=== PATIENT | female | born 1990 | race Caucasian/White ===

== ENCOUNTER 2020-06-22 14:38 | Emergency (ER) | payer SELFPAY ==
--- NOTE | 2020-06-22 14:51 | ED Physician Documentation ---
PD HPI FEMALE - Stated complaint Stated Complaint: ABD PX, FEMALE - Chief complaint Chief Complaint: UTI - History obtained from History obtained from: Patient - History of Present Illness Timing - onset: How many days ago (3-4) Timing - duration: Days Timing - details: Gradual onset, Waxing and waning Associated symptoms: Pelvic pain, Dysuria, Urinary frequency. No: Fever, Back pain, Vaginal discharge, Genital sore/lesion Contributing factors: No: Exposed to STD Similar symptoms before: Diagnosis (UTIs several times in past few months, improved on Keflex abx but then back again within a month.) Recently seen: Clinic (seen video with PCP in last month and Dx UTI. Walk in the month prior with UTI. Had UTI dx with labs and CT [place], with normal CT per patient.) Review of Systems Constitutional: denies: Fever, Chills Nose: denies: Rhinorrhea / runny nose, Congestion Throat: denies: Sore throat Respiratory: denies: Cough GI: reports: Abdominal Pain, Nausea. denies: Vomiting, Diarrhea : reports: Dysuria, Frequency, Hematuria, Irregular menses. denies: Discharge Skin: denies: Rash, Lesions PD PAST MEDICAL HISTORY - Past Medical History Cardiovascular: None Respiratory: None Endocrine/Autoimmune: None BOOKKEEPING CLERK: None - Present Medications Home Medications: Ambulatory Orders Medication Instructions Recorded Confirmed Ciprofloxacin [Cipro] 250 mg PO BID #14 tablet 06/22/20 - Allergies Allergies/Adverse Reactions: Allergies Allergy/AdvReac Type Severity Reaction Status Date / Time mushroom Allergy Anaphylaxis Verified 06/22/20 14:44 sulfamethoxazole Allergy Hives Verified 06/22/20 14:44 [From Bactrim] trimethoprim [From Bactrim] Allergy Hives Verified 06/22/20 14:44 - Family History Family history: reports: Other (bladder cancer) PD ED PE NORMAL - Vitals Vital signs reviewed: Yes - General General: Alert and oriented X 3, No acute distress (but somewhat anxious about having worse process due to recurrent UTIs. Specifically concerned about bladder CA since her mom had that. ), Well developed/nourished - Abdomen Abdomen: Normal bowel sounds, Soft, Non tender, Non distended - Female Female : Deferred - Rectal Rectal: Deferred - Back Back: No CVA TTP - Derm Derm: Normal color, Warm and dry - Neuro Neuro: Alert and oriented X 3, No motor deficit, Normal speech Results - Vitals Vitals: Vital Signs - 24 hr 06/22/20 06/22/20 06/22/20 14:44 15:23 16:58 Temperature 36.8 C 36.8 C Heart Rate 83 74 74 Respiratory 20 16 17 Rate Blood Pressure 128/79 137/87 H 137/94 H O2 Saturation 98 100 100 Oxygen O2 Source Room air - Labs Labs: Laboratory Tests 06/22/20 06/22/20 06/22/20 14:55 14:56 16:45 Urine Color YELLOW Urine Clarity HAZY Urine pH 8.0 H Ur Specific [place] 1.015 Urine Protein NEGATIVE Urine Glucose (UA) NEGATIVE Urine Ketones NEGATIVE Urine Occult Blood NEGATIVE Urine Nitrite NEGATIVE Urine Bilirubin NEGATIVE Urine Urobilinogen 0.2 (NORMAL) Ur Leukocyte Esterase SMALL H Urine RBC 0-5 Urine WBC 11-25 H Ur Squamous Epith Cells FEW Squamous Urine Bacteria Moderate H Ur Microscopic Review INDICATED Urine Culture Comments INDICATED Urine HCG, Qual NEGATIVE C. glabrata (PCR) C. krusei (PCR) Susan species DNA Chlam trachomat DNA PCR NEGATIVE N.gonorrhoeae DNA (PCR) NEGATIVE T. vaginalis (PCR) NEGATIVE Bact Vaginosis (PCR) 06/22/20 16:45 Urine Color Urine Clarity Urine pH Ur Specific [place] Urine Protein Urine Glucose (UA) Urine Ketones Urine Occult Blood Urine Nitrite Urine Bilirubin Urine Urobilinogen Ur Leukocyte Esterase Urine RBC Urine WBC Ur Squamous Epith Cells Urine Bacteria Ur Microscopic Review Urine Culture Comments Urine HCG, Qual C. glabrata (PCR) POSITIVE A C. krusei (PCR) NEGATIVE Susan species DNA NEGATIVE Chlam trachomat DNA PCR N.gonorrhoeae DNA (PCR) T. vaginalis (PCR) NEGATIVE Bact Vaginosis (PCR) POSITIVE A - Rads (name of study) pelvic US Radiology: Prelim report reviewed (PCOS, no large cyst, normal ovaries. No free fluid. ), See rad report PD MEDICAL DECISION MAKING - ED course Complexity details: considered differential (she was very concerned about cancer (uterine, bladder, etc) and so gave referral to Urology for further discussion. Recurrent UTI vs vaginitis is not unusual for her age, but could benefit from Urology consult since getting frequent symptoms. ), d/w patient ED course: Follow up after discharge - the vaginal PCR tests are resulted showing yeast and BV. Will contact her next AM and add abx Flagyl and Diflucan. Awaiting urine culture, so not sure yet whether to discontinue the Cipro. Departure - Departure Disposition: 01 Home, Self Care Clinical Impression: Dysuria, History of PCOS, Pelvic pain, Irregular menses UTI (urinary tract infection) Qualifiers: Urinary tract infection type: acute cystitis Hematuria presence: with hematuria Qualified Code(s): N30.01 - Acute cystitis with hematuria Condition: Stable Record reviewed to determine appropriate education?: Yes Instructions: ED UTI Cystitis Female Follow-Up: Dorothy Elizabeth MD [Provider Admit Priv/Credential] - Prescriptions: Ciprofloxacin [Cipro] 250 mg PO BID #14 tablet Comments: Your ultrasound showed expected multiple small cysts consistent with your PCOS. There are no large cysts. The ovaries appeared normal blood flow. No abnormalities of the uterus. No other abnormalities noted. Your urine does have some signs of infection to it so it may be another bladder infection. The vaginal swabs will result in a day or 2 to see if there is any sign of mitchell terial vaginitis as a potential cause for the recurring infections. We will call you if any positive results that need changing in medication. Meanwhile we will treat with Cipro twice daily for a week for the infection. This is chosen since you are allergic to Bactrim (sulfa) and had recently been treated with the cephalexin with the recurrent infection now. You can follow-up with urology with the concern you have of recurrent infections or any other bladder abnormality. Call for an appointment. The urologist referred is part of a small group that does do clinics here in [facility] and you can see any of the group. Discharge Date/Time: 06/22/20 16:59
[2020-06-22 15:03] LABS: BILIRUBIN,URINE NEGATIVE (NEGATIVE); GLUCOSE, URINE (UA) NEGATIVE (NEGATIVE); KETONES,URINE (UA) NEGATIVE (NEGATIVE); LEUKOCYTE ESTERASE, URINE SMALL (NEGATIVE); NITRITE,URINE NEGATIVE (NEGATIVE); OCCULT BLOOD,URINE NEGATIVE (NEGATIVE); PROTEIN,URINE NEGATIVE (NEGATIVE); UROBILINOGEN,URINE 0.2 (NORMAL) E.U./dL (NORMAL)
[2020-06-22 15:07] LABS: CLARITY,URINE HAZY (CLEAR)
[2020-06-22 15:08] LABS: HCG UR QUAL NEGATIVE
[2020-06-22 15:17] LABS: RBC,URINE 0-5 /HPF (0-5)
[2020-06-22 15:18] LABS: BACTERIA,URINE Moderate /HPF (None Seen); SQUAMOUS EPITHELIAL CELL,UR FEW Squamous (<= Few)
[2020-06-22] MEDS ORDERED: IBUPROFEN 600 MG TABLET PO STA (15:23)
--- NOTE | 2020-06-22 16:38 | Ultrasound Report ---
PROCEDURE: Pelvic w/Transvag+Doppler Ltd INDICATIONS: pelvic pain, midline and left TECHNIQUE: Real-time scanning was performed of the pelvic organs, with image documentation. Additional endovagi nal scanning was necessary due to incomplete visualization of the adnexal and endometrial structures by transabdominal scanning. COMPARISON: None. FINDINGS: Transabdominal scanning: Limited scanning through the kidneys shows no hydronephrosis. No pathologi c free abdominal or pelvic fluid. Endovaginal scanning: Uterus: Uterus is normal in size at 6.6 x 7.3 x 4.4 cm. The endometrium measures 5 mm in combined t hickness. There is a 9 mm intramural fibroid seen along the mid posterior uterus. Ovaries: The right ovary measures 3.1 x 2.3 x 3.3 cm. The left ovary measures 2.9 x 2.3 x 2.1 cm. Mo re than 12 follicles can be seen involving each ovary. Normal-appearing arterial waveforms are confir med to each ovary. No adnexal masses are seen on either side. IMPRESSION: No acute abnormality can be seen. Negative for ovarian torsion. More than 12 follicles can be seen involving each ovary, which is consistent with the known clinical history of polycystic ovarian syndrome. Note: Concordant preliminary findings given by the cost engineer upon the completion of the examination to Dr. Dodge at 4:20 PM on 06/22/2020. Reviewed by: Abhishek Romeo MD on 06/22/2020 3:37 PM [place] Approved by: Abhishek Romeo MD on 06/22/2020 3:37 PM [facility] Station ID: [id number]
[2020-06-22] MEDS ORDERED: CIPROFLOXACIN 250 MG TABLET PO STA (16:44)
[2020-06-22 16:59] VITALS: BP 137/94
[2020-06-22 18:54] LABS: CANDIDA GROUP DNA NEGATIVE (NEGATIVE); CANDIDA KRUSEI DNA NEGATIVE (NEGATIVE); TRICHOMONAS VAGINALIS DNA NEGATIVE (NEGATIVE)
[2020-06-22 19:28] LABS: TRICHOMONAS VAGINALIS DNA NEGATIVE (NEGATIVE)
== END 2020-06-22 16:59 | disposition home or self-care (01) ==
LOC: ED 14:38
DX: N30.01 Acute cystitis with hematuria (principal); Z87.42 Personal history of other diseases of the female genital tract
CPT/HCPCS: 76830; 76856; 81001; 81025; 87086; 87181; 87481; 87491; 87591; 87661; 87801; 93976; 99284; A9270; 81003

== ENCOUNTER 2020-10-26 17:18 | Emergency (ER) | payer SELFPAY ==
[2020-10-26 17:51] LABS: BASOPHILS # (AUTO) 0.1 10^3/uL (0.0-0.1); BASOPHILS % (AUTO) 0.6 %; EOSINOPHILS # (AUTO) 0.1 10^3/uL (0.0-0.7); EOSINOPHILS % (AUTO) 0.7 %; HCT - HEMATOCRIT 41.7 % (37.0-47.0); HGB - HEMOGLOBIN 13.7 g/dL (12.0-16.0); LYMPHOCYTES # (AUTO) 3.6 10^3/uL (1.5-3.5); LYMPHOCYTES % (AUTO) 28.6 %; MEAN CORPUSCULAR HEMOGLOBIN 28.4 pg (27.0-31.0); MEAN CORPUSCULAR HGB CONC 32.9 g/dL (32.0-36.0); MEAN CORPUSCULAR VOLUME 86.3 fL (81.0-99.0); MEAN PLATELET VOLUME 10.3 fL (7.9-10.8); MONOCYTES # (AUTO) 0.7 10^3/uL (0.0-1.0); MONOCYTES % (AUTO) 5.5 %; NEUTROPHILS % (AUTO) 64.4 %; PLT - PLATELET COUNT 275 10^3/uL (130-450); RED BLOOD COUNT 4.83 10^6/uL (4.20-5.40); RED CELL DISTRIBUTION WIDTH 12.3 % (12.0-15.0); WHITE BLOOD COUNT 12.4 x10^3/uL (4.8-10.8)
--- NOTE | 2020-10-26 18:00 | XRAY Report ---
PROCEDURE: Chest 1 View X-Ray INDICATIONS: Chest pain TECHNIQUE: One view of the chest was acquired. COMPARISON: None FINDINGS: Surgical changes and devices: None. Lungs and pleura: No pleural effusions or pneumothorax. Lungs are clear. Mediastinum: Mediastinal contours appear normal. Heart size is normal. Bones and chest wall: No suspicious bony lesions. Overlying soft tissues appear unremarkable. IMPRESSION: No acute process. Reviewed by: Tha Patterson MD on 10/26/2020 5:59 PM PDT Approved by: Tha Patterson MD on 10/26/2020 5:59 PM PDT Station ID: [id number]
[2020-10-26 18:06] LABS: ALBUMIN 4.5 g/dL (3.2-5.5); ALBUMIN/GLOBULIN RATIO 1.6 (1.0-2.2); BILIRUBIN,TOTAL 0.4 mg/dL (0.2-1.0); CALCIUM 9.3 mg/dL (8.5-10.3); CREATININE 0.7 mg/dL (0.4-1.0); POTASSIUM 3.8 mmol/L (3.5-5.0); TOTAL PROTEIN 7.3 g/dL (6.7-8.2)
[2020-10-26] MEDS ORDERED: DEXAMETHASONE 10 MG/ML VIAL IVP STA (18:51)
[2020-10-26] MEDS ORDERED: KETOROLAC 30 MG/ML VIAL IVP STA (18:51)
--- NOTE | 2020-10-26 20:17 | ED Physician Documentation ---
PD HPI CHEST PAIN - Stated complaint Stated Complaint: CP - Chief complaint Chief Complaint: Cardiac - History obtained from History obtained from: Patient - History of Present Illness Timing - onset: How many months ago (1) Timing - onset during: Light activity Timing - duration: Months (1) Timing - details: Gradual onset, Still present, Waxing and waning Quality: Sharp, Pain Location: Substernal, Right chest Radiation: Back Improved by: Rest Worsened by: Inspiration, Movement, Palpation, Position Associated symptoms: Shortness of air. No: Diaphoresis, Nausea, Vomiting, Feeling faint / dizzy, General Weakness, Palpitations, Cough Similar symptoms before: Has not had sx before Recently seen: Emergency Dept - Additional information Additional information: 30-year-old female with a history of bipolar disorder has developed pain in her chest and this is worse if she takes a deep breath or bends over. She has been evaluated for this chest pain at [facility] in [place] when she had a more severe episode and they had no specific findings. Patient presents to the emerge department this evening with pain in her chest present at rest worse with inspiration movement palpation and bending over. She does not otherwise feel ill. Review of Systems Constitutional: denies: Fever Eyes: denies: Decreased vision Ears: denies: Ear pain Nose: denies: Rhinorrhea / runny nose, Congestion Throat: denies: Sore throat Cardiac: reports: Chest pain / pressure. denies: Palpitations, Pedal edema, Calf pain Respiratory: reports: Dyspnea. 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 Psych: Depression, Anxiety, Obsessive compulsive disorder - Past Surgical History Past Surgical History: No - Present Medications Home Medications: Ambulatory Orders Medication Instructions Recorded Confirmed No Known Home Medications 10/26/20 10/26/20 - Allergies Allergies/Adverse Reactions: Allergies Allergy/AdvReac Type Severity Reaction Status Date / Time mushroom Allergy Anaphylaxis Verified 10/26/20 17:25 sulfamethoxazole Allergy Hives Verified 10/26/20 17:25 [From Bactrim] trimethoprim [From Bactrim] Allergy Hives Verified 10/26/20 17:25 - Social History Does the pt smoke?: No Smoking Status: Never smoker Does the pt drink ETOH?: Yes Does the pt have substance abuse?: No - Immunizations Immunizations are current?: Yes - POLST Patient has POLST: No PD ED PE NORMAL - Vitals Vital signs reviewed: Yes (Hypertensive) - General General: Alert and oriented X 3, No acute distress, Well developed/nourished - HEENT HEENT: Atraumatic, PERRL, EOMI - Neck Neck: Supple, no meningeal sign, No bony TTP - Cardiac Cardiac: RRR, No murmur - Respiratory Respiratory: No respiratory distress, Clear bilaterally, Other (There is tenderness to palpation of the chest wall especially along the right sternal costal angle. This reproduces the pain the patient is experiencing.) - Abdomen Abdomen: Soft, Non tender - Back Back: No CVA TTP, No spinal TTP - Derm Derm: Normal color, Warm and dry, No rash - Extremities Extremities: No deformity, No edema - Neuro Neuro: Alert and oriented X 3, product development technician 2-12 intact, No motor deficit, No sensory deficit, Normal speech Eye Opening: Spontaneous Motor: Obeys Commands Verbal: Oriented GCS Score: 15 - Psych Psych: Normal mood, Normal affect Results - Vitals Vitals: Vital Signs - 24 hr 10/26/20 10/26/20 10/26/20 17:25 19:29 20:24 Temperature 36.6 C 36.7 C 37.0 C Heart Rate 86 71 75 Respiratory 16 16 16 Rate Blood Pressure 138/81 H 114/78 126/65 O2 Saturation 99 98 100 Oxygen O2 Source Room air - EKG (time done) 1721 Rate: Rate (enter#) (80) Ischemia: Normal ST segments Compare to prior EKG: Old EKG unavailable Computer interpretation: Agree with computer - Labs Labs: Laboratory Tests 10/26/20 10/26/20 10/26/20 17:42 17:42 17:42 WBC 12.4 H RBC 4.83 Hgb 13.7 Hct 41.7 MCV 86.3 MCH 28.4 MCHC 32.9 RDW 12.3 Plt Count 275 MPV 10.3 Neut # (Auto) 8.0 H Lymph # (Auto) 3.6 H Hawkins # (Auto) 0.7 Eos # (Auto) 0.1 Baso # (Auto) 0.1 Absolute Nucleated RBC 0.00 Nucleated RBC % 0.0 D-Dimer Sodium 137 Potassium 3.8 Chloride 103 Carbon Dioxide 25 Anion Gap 9.0 BUN 11 Creatinine 0.7 Estimated GFR (MDRD) 99 Glucose 96 Calcium 9.3 Total Bilirubin 0.4 AST 15 ALT 18 Alkaline Phosphatase 51 Troponin I High Sens 2.7 Total Protein 7.3 Albumin 4.5 Globulin 2.8 Albumin/Globulin Ratio 1.6 Lipase 41 10/26/20 17:42 WBC RBC Hgb Hct MCV MCH MCHC RDW Plt Count MPV Neut # (Auto) Lymph # (Auto) Hawkins # (Auto) Eos # (Auto) Baso # (Auto) Absolute Nucleated RBC Nucleated RBC % D-Dimer 222.5 Sodium Potassium Chloride Carbon Dioxide Anion Gap BUN Creatinine Estimated GFR (MDRD) Glucose Calcium Total Bilirubin AST ALT Alkaline Phosphatase Troponin I High Sens Total Protein Albumin Globulin Albumin/Globulin Ratio Lipase - Rads (name of study) chest Radiology: Prelim report reviewed (Impression: No acute process.), EMP read indepedently, See rad report PD MEDICAL DECISION MAKING - ED course Complexity details: reviewed old records, reviewed results, re-evaluated patient, considered differential, d/w patient ED course: 30-year-old female who is developed chest pain and fatigue has chest wall tenderness that reproduces her symptoms and she gives a history that she has a bipolar disorder has recently gone through a divorce and periodically will have nighttime sobbing. She readily admits to this. I suspect this is the underlying culprit for her chest wall pain. She has a history of bipolar affect of disorder and she is not getting treatment for that currently as she is moved up to the area and does not have a primary care doctor. Here in the emergency department she is treated with 10 mg of dexamethasone and 30 mg of Toradol intravenously she has some improvement in her pain with that and I have discussed with her what the findings are and that I would like to see her get some treatment for her bipolar disorder as well. She is resistant to use of a narcotic pain relievers and I have recommended Tylenol or ibuprofen for pain. Departure - Departure Disposition: 01 Home, Self Care Clinical Impression: Acute costochondritis Condition: Stable Instructions: ED Chest Pain Costochondritis Follow-Up: [facility] [Provider Group] Discharge Date/Time: 10/26/20 20:30
[2020-10-26 20:25] VITALS: BP 126/65
== END 2020-10-26 20:30 | disposition home or self-care (01) ==
LOC: ED 17:18
DX: M94.0 Chondrocostal junction syndrome [Tietze] (principal); F31.9 Bipolar disorder, unspecified
CPT/HCPCS: 36415; 80053; 83690; 84484; 85025; 85379; 93005; 96374; 96375; 99284

== ENCOUNTER 2021-01-03 11:39 | Emergency (ER) | payer MEDICAID ==
[2021-01-03] MEDS ORDERED: SODIUM CHLORIDE 0.9% 1,000 ML IV STA (12:23)
[2021-01-03] MEDS ORDERED: ONDANSETRON 4 MG/2 ML VIAL IVP STA (12:23)
[2021-01-03] MEDS ORDERED: HYDROmorphone 1 MG/ML CARPUJECT IVP STA (12:23)
[2021-01-03 12:27] LABS: BASOPHILS # (AUTO) 0.1 10^3/uL (0.0-0.1); BASOPHILS % (AUTO) 0.4 %; EOSINOPHILS # (AUTO) 0.1 10^3/uL (0.0-0.7); EOSINOPHILS % (AUTO) 0.8 %; HCT - HEMATOCRIT 45.6 % (37.0-47.0); HGB - HEMOGLOBIN 14.9 g/dL (12.0-16.0); LYMPHOCYTES % (AUTO) 25.1 %; MEAN CORPUSCULAR HEMOGLOBIN 28.7 pg (27.0-31.0); MEAN CORPUSCULAR HGB CONC 32.7 g/dL (32.0-36.0); MEAN CORPUSCULAR VOLUME 87.9 fL (81.0-99.0); MEAN PLATELET VOLUME 9.8 fL (7.9-10.8); MONOCYTES # (AUTO) 0.5 10^3/uL (0.0-1.0); MONOCYTES % (AUTO) 4.5 %; NEUTROPHILS # (AUTO) 8.3 10^3/uL (1.5-6.6); NEUTROPHILS % (AUTO) 68.9 %; PLT - PLATELET COUNT 297 10^3/uL (130-450); RED BLOOD COUNT 5.19 10^6/uL (4.20-5.40); RED CELL DISTRIBUTION WIDTH 12.7 % (12.0-15.0)
--- NOTE | 2021-01-03 12:28 | ED Physician Documentation ---
History of Present Illness - Stated complaint Stated Complaint: ABD PX - Chief complaint Chief Complaint: Abd Pain - Additonal information Additional information: 30-year-old female presents emergency department for evaluation of lower abdomi nal pain. Reports it began last night as periumbilical and then migrated to the right lower quadrant. No fevers or vomiting. Pain has been intermittent. Sometimes throbbing sometimes sharp. Does not radiate to the back or left side. No pertinent past surgical history. She does have a history of PCOS. Was previously on Metformin but is no longer taking that due to a change in primary care providers as well as geographic location. This pain is not similar with previous PCOS flares. Patient is quite anxious worried that she could have appendicitis. Review of Systems Constitutional: denies: Fever, Chills Eyes: reports: Reviewed and negative Ears: reports: Reviewed and negative Nose: reports: Reviewed and negative Throat: reports: Reviewed and negative Cardiac: reports: Reviewed and negative GI: reports: Abdominal Pain. 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 Psych: Depression, Anxiety, Obsessive compulsive disorder - Past Surgical History Past Surgical History: No - Present Medications Home Medications: Ambulatory Orders Medication Instructions Recorded Confirmed No Known Home Medications 10/26/20 01/03/21 - Allergies Allergies/Adverse Reactions: Allergies Allergy/AdvReac Type Severity Reaction Status Date / Time mushroom Allergy Anaphylaxis Verified 10/26/20 17:25 sulfamethoxazole Allergy Hives Verified 10/26/20 17:25 [From Bactrim] trimethoprim [From Bactrim] Allergy Hives Verified 10/26/20 17:25 - Social History Does the pt smoke?: No Smoking Status: Never smoker Does the pt drink ETOH?: Yes Does the pt have substance abuse?: No - Immunizations Immunizations are current?: Yes - POLST Patient has POLST: No PD ED PE EXPANDED - General General: Alert, No acute distress - Cardiac Cardiac: Regular Rate, Radial strong equal, Pedal strong equal, Cap refill < 2 sec. No: Murmur Present - Respiratory Respiratory: Clear to ausultation brandi. No: Distress, Labored - Abdomen Abdomen: Normal Bowel sounds, Tender to palpation (Tenderness to the right lower quadrant without guarding or rebound. No flank or CVA tenderness elicited. Negative McBurney's.) - Derm Derm: Normal color, Warm and dry. No: Rash - Extremities Extremities: Normal. No: Deformity, Tenderness - Neuro Neuro: Alert and Oriented X 3, CNII-XII intact - GCS Eye Opening: Spontaneous Motor: Obeys Commands Verbal: Oriented Total: 15 Results - Vitals Vitals: Vital Signs - 24 hr 01/03/21 11:50 Temperature 35.9 C L Heart Rate 86 Respiratory 18 Rate Blood Pressure 144/91 H O2 Saturation 97 Oxygen O2 Source Room air - Labs Labs: Laboratory Tests 01/03/21 01/03/21 01/03/21 11:46 12:21 12:21 WBC 12.0 H RBC 5.19 Hgb 14.9 Hct 45.6 MCV 87.9 MCH 28.7 MCHC 32.7 RDW 12.7 Plt Count 297 MPV 9.8 Neut # (Auto) 8.3 H Lymph # (Auto) 3.0 [place] # (Auto) 0.5 Eos # (Auto) 0.1 Baso # (Auto) 0.1 Absolute Nucleated RBC 0.00 Nucleated RBC % 0.0 Sodium 138 Potassium 3.8 Chloride 101 Carbon Dioxide 26 Anion Gap 11.0 BUN 12 Creatinine 0.7 Estimated GFR (MDRD) 99 Glucose 92 Calcium 10.2 Total Bilirubin 0.4 AST 15 ALT 19 Alkaline Phosphatase 56 Total Protein 8.1 Albumin 4.8 Globulin 3.3 Albumin/Globulin Ratio 1.5 Lipase 44 Urine Color YELLOW Urine Clarity CLEAR Urine pH 7.0 Ur Specific [place] 1.010 Urine Protein NEGATIVE Urine Glucose (UA) NEGATIVE Urine Ketones NEGATIVE Urine Occult Blood NEGATIVE Urine Nitrite NEGATIVE Urine Bilirubin NEGATIVE Urine Urobilinogen 0.2 (NORMAL) Ur Leukocyte Esterase NEGATIVE Ur Microscopic Review NOT INDICATED Urine Culture Comments NOT INDICATED Urine HCG, Qual NEGATIVE - Rads (name of study) CT abd Radiology: Final report received (Appendix is normal. No free fluid or free air. No dilated loops of bowel.) PD MEDICAL DECISION MAKING - ED course Complexity details: reviewed results, re-evaluated patient, d/w patient, d/w family ED course: 30-year-old female presents emergency department for evaluation of 24 hours right lower quadrant abdominal pain that initially began in the periumbilical area. Screening labs show no acute abnormalities. She is not . We did do a CT scan that did not reveal findings of acute appendicitis. There is an incidental finding of a small fat-containing umbilical hernia. Here in the emergency department patient declined any pain medication and on reexam she is free of pain. CT imaging findings were discussed with the patient. Emergent return precautions were discussed. Departure - Departure Disposition: Home, Self Care Clinical Impression: RLQ abdominal pain Umbilical hernia Qualifiers: Obstruction and gangrene presence: without obstruction or gangrene Qualified Code(s): K42.9 - Umbilical hernia without obstruction or gangrene Condition: Stable Record reviewed to determine appropriate education?: Yes Instructions: ED Abdominal Pain Cause Unkn Fem Ch Comments: Lola you were seen here in the emergency department today for right lower quadrant abdominal pain. As we discussed your screening labs were all essentia lly normal. Your urine shows no signs of infection and you are not . We did do a CT scan to ensure that he did not have appendicitis and the appendix is normal. Your CAT scan was essentially normal for your age. You do have a very small fat-containing umbilical hernia. This is something that will just be watched over time and can be discussed with your primary care provider. If you ever develop suddenly severe umbilical pain, high fevers uncontrolled vomiting please return immediately to the ER for a second evaluation.
[2021-01-03 12:31] LABS: BILIRUBIN,URINE NEGATIVE (NEGATIVE); GLUCOSE, URINE (UA) NEGATIVE (NEGATIVE); KETONES,URINE (UA) NEGATIVE (NEGATIVE); LEUKOCYTE ESTERASE, URINE NEGATIVE (NEGATIVE); NITRITE,URINE NEGATIVE (NEGATIVE); OCCULT BLOOD,URINE NEGATIVE (NEGATIVE); PROTEIN,URINE NEGATIVE (NEGATIVE); UROBILINOGEN,URINE 0.2 (NORMAL) E.U./dL (NORMAL)
[2021-01-03 12:32] LABS: CLARITY,URINE CLEAR (CLEAR); HCG UR QUAL NEGATIVE
[2021-01-03 12:41] LABS: ALBUMIN 4.8 g/dL (3.2-5.5); ALBUMIN/GLOBULIN RATIO 1.5 (1.0-2.2); BILIRUBIN,TOTAL 0.4 mg/dL (0.2-1.0); CALCIUM 10.2 mg/dL (8.5-10.3); CREATININE 0.7 mg/dL (0.4-1.0); POTASSIUM 3.8 mmol/L (3.5-5.0); TOTAL PROTEIN 8.1 g/dL (6.7-8.2)
[2021-01-03] MEDS ORDERED: IOVERSOL 320 100 ML VIAL IVP ONE ×3 (12:56→16:50)
--- NOTE | 2021-01-03 13:41 | CT Report ---
PROCEDURE: Abdomen/Pelvis W INDICATIONS: RLQ abd CONTRAST: IV CONTRAST: Optiray 320 ml: 100 PO CONTRAST: *NO PO CONTRAST TECHNIQUE: After the administration of contrast, 5 mm thick sections acquired from the diaphragms to the sym physis. 5 mm thick coronal and sagittal reformats were acquired. For radiation dose reduction, the following was used: automated exposure control, adjustment of mA and/or kV according to patient size . COMPARISON: None. FINDINGS: Image quality: Excellent. ABDOMEN: Lung bases: Lung bases are clear. Heart size is normal. Solid organs: Liver and spleen are normal in size and enhancement. Gallbladder is normal Biliary s ystem is non dilated. Pancreas enhances normally. No adrenal nodules. Kidneys demonstrate normal s ize and enhancement, without hydronephrosis. Peritoneum and bowel: Bowel loops demonstrate normal wall thickness and caliber. No free fluid or a ir. The appendix is normal. Nodes and vessels: No retroperitoneal or mesenteric adenopathy by size criteria. Aorta and inferior vena cava are normal in size. Miscellaneous: Small fat-containing umbilical hernia. PELVIS: Genitourinary: Bladder wall thickness is normal. Miscellaneous: No inguinal hernias or adenopathy. Bones: No suspicious bony lesions. No vertebral body compression fractures. IMPRESSION: 1. Appendix is normal. 2. No free fluid or free air. 3. No dilated loops of bowel. Reviewed by: Mita Eldridge MD, PhD on 01/03/2021 1:40 PM PDT Approved by: Mita Eldridge MD, PhD on 01/03/2021 1:40 PM PDT Station ID: [id number]
[2021-01-03 14:10] VITALS: BP 138/75
== END 2021-01-03 14:10 | disposition home or self-care (01) ==
LOC: ED 11:39
DX: R10.31 Right lower quadrant pain (principal); K42.9 Umbilical hernia without obstruction or gangrene
CPT/HCPCS: 36415; 74177; 80053; 81003; 81025; 83690; 85025; 99284; Q9967; 81001; 87086

== ENCOUNTER 2021-01-22 10:34 | Outpatient (CLI) | payer MEDICAID ==
[2021-01-22 11:04] LABS: MUDS CUTOFF CONCENTRATIONS CUTOFF CONC BELOW:
[2021-01-22 11:05] LABS: BILIRUBIN,URINE NEGATIVE (NEGATIVE); GLUCOSE, URINE (UA) NEGATIVE (NEGATIVE); KETONES,URINE (UA) NEGATIVE (NEGATIVE); LEUKOCYTE ESTERASE, URINE NEGATIVE (NEGATIVE); NITRITE,URINE NEGATIVE (NEGATIVE); OCCULT BLOOD,URINE NEGATIVE (NEGATIVE); PROTEIN,URINE NEGATIVE (NEGATIVE); UROBILINOGEN,URINE 0.2 (NORMAL) E.U./dL (NORMAL)
[2021-01-22 11:06] LABS: BASOPHILS # (AUTO) 0.1 10^3/uL (0.0-0.1); BASOPHILS % (AUTO) 0.4 %; CLARITY,URINE CLEAR (CLEAR); EOSINOPHILS # (AUTO) 0.1 10^3/uL (0.0-0.7); EOSINOPHILS % (AUTO) 0.7 %; HCT - HEMATOCRIT 41.2 % (37.0-47.0); HGB - HEMOGLOBIN 13.4 g/dL (12.0-16.0); LYMPHOCYTES # (AUTO) 2.6 10^3/uL (1.5-3.5); LYMPHOCYTES % (AUTO) 21.2 %; MEAN CORPUSCULAR HEMOGLOBIN 28.9 pg (27.0-31.0); MEAN CORPUSCULAR HGB CONC 32.5 g/dL (32.0-36.0); MEAN PLATELET VOLUME 9.9 fL (7.9-10.8); MONOCYTES # (AUTO) 0.6 10^3/uL (0.0-1.0); MONOCYTES % (AUTO) 4.5 %; PLT - PLATELET COUNT 276 10^3/uL (130-450); RED BLOOD COUNT 4.63 10^6/uL (4.20-5.40); WHITE BLOOD COUNT 12.3 x10^3/uL (4.8-10.8)
[2021-01-22 11:14] LABS: AMPHETAMINE SCREEN,URINE NEGATIVE (NEGATIVE); BARBITURATE SCREEN,UR NEGATIVE (NEGATIVE); BENZODIAZEPINES SCREEN, URINE NEGATIVE (NEGATIVE); COCAINE SCREEN URINE NEGATIVE (NEGATIVE); METHADONE SCREEN, URINE NEGATIVE (NEGATIVE); METHAMPHETAMINES SCREEN, URINE NEGATIVE (NEGATIVE); OPIATE SCREEN, URINE NEGATIVE (NEGATIVE); OXYCODONE SCREEN, URINE NEGATIVE (NEGATIVE); PROPOXYPHENE SCREEN, URINE NEGATIVE (NEGATIVE); THC CANNABINOID SCREEN, URINE NEGATIVE (NEGATIVE); TRICYCLIC ANTIDEPRESSANT,URINE NEGATIVE (NEGATIVE)
[2021-01-22 11:20] LABS: BACTERIA,URINE Few /HPF (None Seen); RBC,URINE 0-5 /HPF (0-5); SQUAMOUS EPITHELIAL CELL,UR FEW Squamous (<= Few); WBC,URINE 0-3 /HPF (0-5)
[2021-01-23 12:13] LABS: HEPATITIS B SURFACE ANTIGEN NON-REACTIVE (NON-REACTIVE)
[2021-01-23 12:56] LABS: HEPATITIS C ANTIBODY NON-REACTIVE (NON-REACTIVE)
[2021-01-23 15:31] LABS: HIV AG/AB 4TH GEN NON-REACTIVE (NON-REACTIVE)
== END 2021-01-22 10:35 | disposition home or self-care (01) ==
LOC: LAB 10:34
PROVIDERS: ATTEND Nurse Practitioner Obstetrics & Gynecology
DX: Z32.01 Encounter for pregnancy test, result positive (principal)
CPT/HCPCS: 36415; 80306; 81001; 84702; 85025; 86592; 86762; 86787; 86803; 86850; 86900; 86901; 87086; 87340; 87389

== ENCOUNTER 2021-02-03 08:46 | Outpatient (CLI) | payer MEDICAID ==
--- NOTE | 2021-02-03 10:12 | Ultrasound Report ---
PROCEDURE: OB First Trimester w/TV INDICATIONS: POSITIVE TEST OUTSIDE/PRIOR DATING DATA: Last menstrual period (LMP): 12/11/2020. LMP-based estimated date of delivery (KATERINA): 09/17/2021. First dating scan (date and location): 02/03/2021. Estimated date of delivery (KATERINA) from first dating scan: 09/22/2021. The below data below was generated using the KATERINA of 09/22/2021 TECHNIQUE: Real-time scanning was performed of the fetus and maternal pelvic organs, with image docu mentation. Endovaginal scanning was also performed to better visualize the fetus and maternal ovarie s. COMPARISON: None FINDINGS: Embryo: There is a single intrauterine gestational sac containing pole. Mean sac diameter is 2 .3 cm corresponding with a 7 week 2 day gestation. [place]-rump length is 1.0 cm corresponding to 7 wee k 0 day gestation. Normal-appearing yolk sac identified. Heart rate: 138 bpm Measurement variability in dating: +/- 4 weeks by LMP, +/- 7 days by mean sac diameter (use before 6 weeks gestation if crown-rump length not able to be measured), +/- 5 days by crown-rump length (6-12 weeks gestation). Maternal organs: Right ovarian 1.6 cm corpus luteum cyst noted. There is a posterior myometrial fibro id measuring 1.1 cm. IMPRESSION: Single live intrauterine corresponds with a 7 week 0 day gestation. Right ovarian corpus luteum cyst and small uterine fibroid Reviewed by: Leonid Huggins MD on 02/03/2021 9:11 AM JANIE Approved by: Leonid Huggins MD on 02/03/2021 9:11 AM JANIE Station ID: [id number]
== END 2021-02-03 08:47 | disposition home or self-care (01) ==
LOC: DI 08:46
PROVIDERS: ATTEND Nurse Practitioner Obstetrics & Gynecology
DX: Z32.01 Encounter for pregnancy test, result positive (principal)

== ENCOUNTER 2021-10-01 14:02 | Outpatient (CLI) | payer MEDICAID | END 2021-10-01 14:03 | disposition critical access hospital (66) | LOC: EMS 14:02 | DX: O90.89 Other complications of the puerperium, not elsewhere classified (principal); R12 Heartburn | CPT/HCPCS: A0425; A0429; A0999 ==

== ENCOUNTER 2021-10-01 14:26 | Inpatient (IN) | payer MEDICAID ==
[2021-10-01] MEDS ORDERED: SODIUM CHLORIDE 0.9% 1,000 ML IV STA (14:41)
--- NOTE | 2021-10-01 14:44 | ED Physician Documentation ---
History of Present Illness - Stated complaint Stated Complaint: HIGH BP/1 WK POST - Chief complaint Chief Complaint: Neuro - History obtained from History obtained from: Patient - History of Present Illness Timing: Today Pain level max: 0 Pain level now: 0 - Additonal information Additional information: Patient is a 31-year-old female, 1 para 1 who presents the emergency department after a delivery at [place] in [place] 1 week ago. She states that she has been feeling tired and weak since that time. She states that she was lightheaded today at the imaging analyst's office with her infant, they checked her blood pressure and it was 160/100. They called 911 and the patient was brought here. Currently she states she just feels tired. No fevers. No chills. Blood pressure is decreased to 122/80 upon arrival to the emergency department. She did have a mild headache earlier, none now. Did not have any complications with the per the patient. 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 Psych: Depression, Anxiety, Obsessive compulsive disorder - Past Surgical History Past Surgical History: No - Present Medications Home Medications: Ambulatory Orders Medication Instructions Recorded Confirmed No Known Home Medications 10/26/20 01/03/21 - Allergies Allergies/Adverse Reactions: Allergies Allergy/AdvReac Type Severity Reaction Status Date / Time mushroom Allergy Anaphylaxis Verified 10/01/21 14:37 sulfamethoxazole Allergy Hives Verified 10/01/21 14:37 [From Bactrim] trimethoprim [From Bactrim] Allergy Hives Verified 10/01/21 14:37 - Social History Does the pt smoke?: No Smoking Status: Never smoker Does the pt drink ETOH?: Yes Does the pt have substance abuse?: No - Immunizations Immunizations are current?: Yes - POLST Patient has POLST: No PD ED PE NORMAL - Vitals Vital signs reviewed: Yes - General General: Alert and oriented X 3, No acute distress - HEENT HEENT: PERRL, Moist mucous membranes - Neck Neck: Supple, no meningeal sign - Cardiac Cardiac: RRR, No murmur, Strong equal pulses - Respiratory Respiratory: No respiratory distress, Clear bilaterally - Abdomen Abdomen: Soft, Non tender, Non distended - Derm Derm: Warm and dry - Extremities Extremities: No edema, No calf tenderness / cord - Neuro Neuro: Alert and oriented X 3, radiocommunications technician 2-12 intact, No motor deficit, No sensory deficit - Psych Psych: Normal mood, Normal affect Results - Vitals Vitals: Vital Signs - 24 hr 10/01/21 10/01/21 14:32 17:07 Temperature 36.7 C Heart Rate 79 73 Respiratory 16 16 Rate Blood Pressure 122/80 133/74 H O2 Saturation 97 98 Oxygen O2 Source Room air - Labs Labs: Laboratory Tests 10/01/21 10/01/21 10/01/21 14:55 14:55 15:04 WBC 11.2 H RBC 3.68 L Hgb 10.9 L Hct 33.0 L MCV 89.7 MCH 29.6 MCHC 33.0 RDW 13.4 Plt Count 263 MPV 9.9 Neut # (Auto) 8.5 H Lymph # (Auto) 2.0 [place] # (Auto) 0.4 Eos # (Auto) 0.3 Baso # (Auto) 0.0 Absolute Nucleated RBC 0.00 Nucleated RBC % 0.0 Sodium 137 Potassium 3.8 Chloride 103 Carbon Dioxide 24 Anion Gap 10.0 BUN 12 Creatinine 0.5 Estimated GFR (MDRD) 145 Glucose 90 Calcium 9.2 Phosphorus 3.6 Magnesium 1.8 Total Bilirubin 0.4 AST 25 ALT 38 Alkaline Phosphatase 64 Total Protein 6.2 L Albumin 2.8 L Globulin 3.4 Albumin/Globulin Ratio 0.8 L Lipase 30 Urine Color YELLOW Urine Clarity HAZY Urine pH 7.5 Ur Specific Reading 1.015 Urine Protein NEGATIVE Urine Glucose (UA) NEGATIVE Urine Ketones NEGATIVE Urine Occult Blood LARGE H Urine Nitrite NEGATIVE Urine Bilirubin NEGATIVE Urine Urobilinogen 0.2 (NORMAL) Ur Leukocyte Esterase NEGATIVE Urine RBC TNTC H Urine WBC 0-3 Ur Squamous Epith Cells FEW Squamous Urine Bacteria Rare Ur Microscopic Review INDICATED Urine Culture Comments NOT INDICATED Urine Creatinine Ur Total Protein Timed Protein/Creatinin Ratio 10/01/21 15:04 WBC RBC Hgb Hct MCV MCH MCHC RDW Plt Count MPV Neut # (Auto) Lymph # (Auto) [place] # (Auto) Eos # (Auto) Baso # (Auto) Absolute Nucleated RBC Nucleated RBC % Sodium Potassium Chloride Carbon Dioxide Anion Gap BUN Creatinine Estimated GFR (MDRD) Glucose Calcium Phosphorus Magnesium Total Bilirubin AST ALT Alkaline Phosphatase Total Protein Albumin Globulin Albumin/Globulin Ratio Lipase Urine Color Urine Clarity Urine pH Ur Specific Reading Urine Protein Urine Glucose (UA) Urine Ketones Urine Occult Blood Urine Nitrite Urine Bilirubin Urine Urobilinogen Ur Leukocyte Esterase Urine RBC Urine WBC Ur Squamous Epith Cells Urine Bacteria Ur Microscopic Review Urine Culture Comments Urine Creatinine 25.6 Ur Total Protein Timed 15 Protein/Creatinin Ratio 0.6 H PD MEDICAL DECISION MAKING - ED course Complexity details: reviewed results, re-evaluated patient, considered differential, d/w patient, d/w clinical services consultant ED course: 31-year-old female with hypertension and proteinuria. Possible preeclampsia? Headache resolved in the emergency department. Patient is 1 week . She is still lightheaded with standing. No chest pain. No shortness of breath. No evidence of pulmonary embolus. Discussed the case with OB, Dr. Rader came and evaluated the patient and will admit the patient for further care. This document was made in part using voice recognition software. While efforts are made to proofread this document, sound alike and grammatical errors may occur. Departure - Departure Disposition: ED Place in Observation Clinical Impression: Hypertension, condition or complication Condition: Stable Discharge Date/Time: 10/01/21 19:01
[2021-10-01 15:00] LABS: BASOPHILS % (AUTO) 0.3 %; EOSINOPHILS # (AUTO) 0.3 10^3/uL (0.0-0.7); EOSINOPHILS % (AUTO) 2.4 %; HGB - HEMOGLOBIN 10.9 g/dL (12.0-16.0); LYMPHOCYTES % (AUTO) 17.7 %; MEAN CORPUSCULAR HEMOGLOBIN 29.6 pg (27.0-31.0); MEAN CORPUSCULAR VOLUME 89.7 fL (81.0-99.0); MEAN PLATELET VOLUME 9.9 fL (7.9-10.8); MONOCYTES # (AUTO) 0.4 10^3/uL (0.0-1.0); MONOCYTES % (AUTO) 3.6 %; NEUTROPHILS # (AUTO) 8.5 10^3/uL (1.5-6.6); NEUTROPHILS % (AUTO) 75.6 %; PLT - PLATELET COUNT 263 10^3/uL (130-450); RED BLOOD COUNT 3.68 10^6/uL (4.20-5.40); RED CELL DISTRIBUTION WIDTH 13.4 % (12.0-15.0); WHITE BLOOD COUNT 11.2 x10^3/uL (4.8-10.8)
[2021-10-01 15:17] LABS: ALBUMIN 2.8 g/dL (3.2-5.5); ALBUMIN/GLOBULIN RATIO 0.8 (1.0-2.2); BILIRUBIN,TOTAL 0.4 mg/dL (0.2-1.0); CALCIUM 9.2 mg/dL (8.5-10.3); CREATININE 0.5 mg/dL (0.4-1.0); MAGNESIUM 1.8 mg/dL (1.7-2.8); PHOSPHORUS 3.6 mg/dL (2.5-4.6); POTASSIUM 3.8 mmol/L (3.5-5.0); TOTAL PROTEIN 6.2 g/dL (6.7-8.2)
[2021-10-01 16:33] LABS: BILIRUBIN,URINE NEGATIVE (NEGATIVE); GLUCOSE, URINE (UA) NEGATIVE (NEGATIVE); KETONES,URINE (UA) NEGATIVE (NEGATIVE); LEUKOCYTE ESTERASE, URINE NEGATIVE (NEGATIVE); NITRITE,URINE NEGATIVE (NEGATIVE); OCCULT BLOOD,URINE LARGE (NEGATIVE); PH,URINE 7.5 PH (5.0-7.5); PROTEIN,URINE NEGATIVE (NEGATIVE); UROBILINOGEN,URINE 0.2 (NORMAL) E.U./dL (NORMAL)
[2021-10-01 16:44] LABS: CLARITY,URINE HAZY (CLEAR)
[2021-10-01 16:51] LABS: BACTERIA,URINE Rare /HPF (None Seen); RBC,URINE TNTC /HPF (0-5); SQUAMOUS EPITHELIAL CELL,UR FEW Squamous (<= Few); WBC,URINE 0-3 /HPF (0-5)
[2021-10-01 17:05] LABS: CREATININE,URINE 25.6 mg/dL; PROTEIN/CREATININE RATIO,URINE 0.6 (<=0.2)
--- NOTE | 2021-10-01 17:11 | CONSULTATION NOTE ---
Referring Provider Name of Referring Provider:: Ahsan Consult Date: 10/01/21 Chief Complaint - Chief Complaint Chief Complaint: Elevated blood pressure History of Present Illness - Admitted From Admitted From:: Emergency department - History Obtained From History obtained from: Patient - History of Present Illness HPI Comment/Other: Patient presents to the emergency department after transport from EMS. She reports she was at her baby's checkup when she began to feel faint. The nurse checked her blood pressure and her blood pressure was reportedly 160s over 90s. She does report a similar episode yesterday and elevated blood pressure for which she went to [facility] for evaluation. She reports she was screened for preeclampsia as well as for a DVT. She was subsequently discharged. Today she reports generalized fatigue and intermittent headaches. She did also note scotomas. The patient reports that her symptoms were exacerbated by her pain medications which she took just prior to her child's clinic visit. Her was complicated by gestational hypertension. She reports her blood pressures became elevated during labor. She had a primary section reportedly for intolerance to labor. 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: reports: Other (PCOS) Psych: reports: Depression, Anxiety, Obsessive compulsive disorder MRSA Hx?: No - POLST Patient has POLST: No Meds/Allgy - Home Medications Home Medications: Ambulatory Orders Medication Instructions Recorded Confirmed No Known Home Medications 10/26/20 01/03/21 - Allergies Allergies/Adverse Reactions: Allergies Allergy/AdvReac Type Severity Reaction Status Date / Time mushroom Allergy Anaphylaxis Verified 10/01/21 14:37 sulfamethoxazole Allergy Hives Verified 10/01/21 14:37 [From Bactrim] trimethoprim [From Bactrim] Allergy Hives Verified 10/01/21 14:37 Exam - Vital Signs Reviewed Vital Signs: Yes Vital Signs: Vital Signs x48h Temp Pulse Resp BP Pulse Ox 10/01/21 17:07 73 16 133/74 H 98 10/01/21 14:32 98.1 F 79 16 122/80 97 - Physical Exam General Appearance: positive: Mild distress Respiratory: positive: No respiratory distress, Breath sounds nml Cardiovascular: positive: Regular rate & rhythm, No murmur Abdomen: positive: Non-tender, Other (incision clean and dry) Extremities: positive: No pedal edema. negative: Calf tenderness Neurologic/Psychiatric: positive: Oriented x3 Conclusion/Plan - Problem List (1) Pre-eclampsia, Conclusion/Plan: 31-year-old G1, P1 post op day 6 status post primary section. # preeclampsiapregnancy was complicated by gestational hypertension. Patient with headache and elevated blood pressure. Urine protein creatinine ratio of 0.6. I discussed the cath urine sample for more accurate evaluation however the patient declined. Will admit for preeclampsia without severe features. Magnesium sulfate for seizure prophylaxis. - Lab Results Fish Bones: 10/01/21 14:55 10/01/21 14:55
[2021-10-01] MEDS ORDERED: ZOLPIDEM 5 MG TABLET PO PRN (18:24)
[2021-10-01] MEDS ORDERED: HYDROcod/ACETAM 5/325 MG TABLET PO PRN (18:27)
[2021-10-01] MEDS ORDERED: CALCIUM GLUCONATE IN NS 0.9% 2,000 MG/100 ML BAG IV PRN (18:47)
[2021-10-01] MEDS ORDERED: MAGNESIUM SULFATE 4 GRAM 4 GM/50 ML BAG IV ONE (18:53)
[2021-10-01] MEDS ORDERED: LACTATED RINGERS 1,000 ML IV SCH (19:00)
[2021-10-01] MEDS ORDERED: MAGNESIUM SULFATE 2 GRAM 2 GM/50 ML BAG IV SCH (19:00)
[2021-10-01] MEDS: ACETAMINOPHEN 325 MG TABLET PO SCH (20:04)
[2021-10-01] MEDS: MAGNESIUM SULFATE IN WATER 20 GM/500 ML IV.SOLN IV SCH (20:35)
[2021-10-02] MEDS: ACETAMINOPHEN 325 MG TABLET PO SCH ×3 (02:15→15:07)
[2021-10-02] MEDS: MAGNESIUM SULFATE IN WATER 20 GM/500 ML IV.SOLN IV SCH (05:49)
--- NOTE | 2021-10-02 15:10 | Discharge Plan ---
Discharge Plan Problem Reviewed?: Yes Disposition: Home, Self Care Condition: Stable Diet: Regular Shower Restrictions: No Driving Restrictions: Yes (while taking narcotics ) Additional Instructions or Follow Up instructions: Return to ED for systolic blood pressure 160 or greater or diastolic blood pressure of 110 or greater. To ED for persistent headache, vision changes or abdominal pain. Follow-up with OB for blood pressure check in 48- 72 hours. No Smoking: If you smoke, Please STOP! Call for help.
--- NOTE | 2021-10-02 15:14 | DISCHARGE SUMMARY ---
Discharge Summary Admit Date: 10/01/21 Discharge Date: 10/02/21 Discharging Provider: Fabiola Moya MD Condition at Discharge: Stable Discharge Disposition: 01 Home, Self Care - DIAGNOSES Admission Diagnoses: preeclampsia Discharge Diagnoses with Status of Each Condition: preeclampsia - HOSPITAL COURSE Hospital Course: 31-year-old G1, P1 status post primary section admitted for preeclampsia 1 week . Patient had elevated blood pressures with systolics in the 140s and diastolics in the 90s and elevated urine protein creatinine ratio. She was admitted for preeclampsia. She received magnesium sulfate for seizure prophylaxis. Her blood pressures remain within normal limits. She was stable for discharge on hospital day 2 with recommendations for follow-up. - ALLERGIES Allergies/Adverse Reactions: Allergies Allergy/AdvReac Type Severity Reaction Status Date / Time mushroom Allergy Anaphylaxis Verified 10/01/21 14:37 sulfamethoxazole Allergy Hives Verified 10/01/21 14:37 [From Bactrim] trimethoprim [From Bactrim] Allergy Hives Verified 10/01/21 14:37 - MEDICATIONS Home Medications: Ambulatory Orders Medication Instructions Recorded Confirmed No Known Home Medications 10/26/20 01/03/21 - PHYSICAL EXAM AT DISCHARGE General Appearance: positive: No acute distress Respiratory: positive: No respiratory distress - LABS Result Diagrams: 10/01/21 14:55 10/01/21 14:55 - FOLLOW UP Follow Up: 48 to 72 hours with OB.
[2021-10-02 19:00] VITALS: BP 127/63
== END 2021-10-02 18:45 | disposition home or self-care (01) | DRG 776 ==
LOC: EDUNIT# → ED 14:26 → FBP 18:43
PROVIDERS: ADMIT Obstetrics & Gynecology; ATTEND Obstetrics & Gynecology
DX: O14.95 Unspecified pre-eclampsia, complicating the puerperium (principal); Z20.822 Contact with and (suspected) exposure to COVID-19
CPT/HCPCS: 36415; 80053; 81001; 82570; 83690; 83735; 84100; 84156; 85025; 87635; 96360; 96361; 99284; 99285; A9270; J7120; 81003; 87086; J3475

== ENCOUNTER 2021-11-17 13:31 | Emergency (ER) | payer MEDICAID ==
--- NOTE | 2021-11-17 13:50 | ED Physician Documentation ---
PD HPI CHEST PAIN - Stated complaint Stated Complaint: HEART PALPITATIONS - Chief complaint Chief Complaint: Cardiac - History obtained from History obtained from: Patient - History of Present Illness Timing - onset: How many days ago (5-6) Timing - onset during: Other (no pattern to the symptoms, but has noted it more often at rest sitting or lying. Not noted it with walking/exertion.) Timing - duration: Seconds, Minutes Timing - details: Intermittant (She states she has had a feeling of her how pounding fast and hard episodically that would last just for a few seconds to a minute. She did notice her heart rate on her watch was under 100 but she still had the feeling of forceful beats.) Quality: Tightness (left chest and left shoulder at times with it.) Location: Left chest Radiation: No: Neck, Back Worsened by: No: Exertion, Inspiration, Movement Associated symptoms: Palpitations Similar symptoms before: Has not had sx before Recently seen: Emergency Dept (3 days ago at [facility] for lower abd pain with normal labs and negative abd CT (normal appendix).), Admitted (vaginal delivery 6 weeks ago. Was seen in hospital 2 weeks (mid September) for elevated BP. No subsequent dyspnea nor headaches. No edema.) Review of Systems Constitutional: denies: Fever, Chills Nose: denies: Rhinorrhea / runny nose, Congestion Throat: denies: Sore throat Respiratory: denies: Cough GI: denies: Abdominal Pain, Nausea, Vomiting : denies: Dysuria, Hematuria Neurologic: denies: Altered mental status, Headache PD PAST MEDICAL HISTORY - Past Medical History Cardiovascular: None Respiratory: None Neuro: None Endocrine/Autoimmune: None GI: None RESEARCH MECHANIC: None : None Psych: Depression, Anxiety, Obsessive compulsive disorder Musculoskeletal: None Derm: None - Past Surgical History Past Surgical History: No /RESEARCH MECHANIC: section - Present Medications Home Medications: Ambulatory Orders Medication Instructions Recorded Confirmed No Known Home Medications 10/26/20 11/17/21 - Allergies Allergies/Adverse Reactions: Allergies Allergy/AdvReac Type Severity Reaction Status Date / Time mushroom Allergy Anaphylaxis Verified 11/17/21 13:40 sulfamethoxazole Allergy Hives Verified 11/17/21 13:40 [From Bactrim] trimethoprim [From Bactrim] Allergy Hives Verified 11/17/21 13:40 - Social History Does the pt smoke?: No Smoking Status: Never smoker Does the pt drink ETOH?: Yes Does the pt have substance abuse?: No - Immunizations Immunizations are current?: Yes - POLST Patient has POLST: No PD ED PE NORMAL - Vitals Vital signs reviewed: Yes - General General: Alert and oriented X 3, No acute distress, Well developed/nourished - HEENT HEENT: Moist mucous membranes, Pharynx benign - Neck Neck: Supple, no meningeal sign, No adenopathy, Thyroid normal - Cardiac Cardiac: RRR, No murmur - Respiratory Respiratory: Clear bilaterally - Abdomen Abdomen: Soft, Non tender - Derm Derm: Normal color, Warm and dry - Extremities Extremities: Normal ROM s pain, No edema, No calf tenderness / cord - Neuro Neuro: Alert and oriented X 3, No motor deficit, Normal speech Results - Vitals Vitals: Vital Signs - 24 hr 11/17/21 11/17/21 13:40 15:49 Temperature 36.5 C Heart Rate 73 75 Respiratory 16 18 Rate Blood Pressure 135/67 H 135/75 H O2 Saturation 100 98 Oxygen O2 Source Room air - EKG (time done) 13:42 Rate: Rate (enter#) (73) Rhythm: NSR [place]: Normal Intervals: Normal HI QRS: Normal Ischemia: Normal ST segments. No: ST elevation c/w ischemia, ST depression - Labs Labs: Laboratory Tests 11/17/21 11/17/21 11/17/21 14:22 14:22 14:22 WBC 10.0 RBC 4.80 Hgb 13.0 Hct 41.1 MCV 85.6 MCH 27.1 MCHC 31.6 L RDW 12.9 Plt Count 304 MPV 10.3 Neut # (Auto) 6.5 Lymph # (Auto) 2.7 [place] # (Auto) 0.5 Eos # (Auto) 0.3 Baso # (Auto) 0.1 Absolute Nucleated RBC 0.00 Nucleated RBC % 0.0 Sodium 141 Potassium 3.8 Chloride 103 Carbon Dioxide 27 Anion Gap 11.0 BUN 11 Creatinine 0.7 Estimated GFR (MDRD) 98 Glucose 83 Calcium 9.8 Magnesium 2.0 Total Bilirubin 0.3 AST 20 ALT 22 Alkaline Phosphatase 73 Troponin I High Sens < 2.3 L Total Protein 7.6 Albumin 4.1 Globulin 3.5 Albumin/Globulin Ratio 1.2 Lipase 48 TSH 11/17/21 14:22 WBC RBC Hgb Hct MCV MCH MCHC RDW Plt Count MPV Neut # (Auto) Lymph # (Auto) [place] # (Auto) Eos # (Auto) Baso # (Auto) Absolute Nucleated RBC Nucleated RBC % Sodium Potassium Chloride Carbon Dioxide Anion Gap BUN Creatinine Estimated GFR (MDRD) Glucose Calcium Magnesium Total Bilirubin AST ALT Alkaline Phosphatase Troponin I High Sens Total Protein Albumin Globulin Albumin/Globulin Ratio Lipase TSH 2.73 - Rads (name of study) chest xray Radiology: Prelim report reviewed (no acute process), See rad report PD MEDICAL DECISION MAKING - ED course Complexity details: reviewed results (no ectopy on montor while here. Description sounds like benign PVCs but could be good to ensure that is all with ZioPatch/Holter. She does not have PCP at this time, so referred to clinics [facility] and they will need to set up monitoring rhythm. ), re-evaluated patient, considered differential, d/w patient Departure - Departure Disposition: Home, Self Care Clinical Impression: Palpitation Condition: Stable Record reviewed to determine appropriate education?: Yes Instructions: ED Palpitations, ED Diet High Potassium Follow-Up: Farheen Mendoza ARNP [Provider Admit Priv/Credential] - Primary/Walk In [place] [Provider Group] Comments: Your heart rhythm is normal here. Your electrolytes including magnesium are normal as is your thyroid screen. Your troponin is normal so no signs of heart muscle injury or heart failure. Your chest x-ray is clear as well. Your description sounds like benign palpitations called PVCs. Try to stay well- hydrated. Also even though your potassium level is in the normal range, this can sometimes be helped by having a high normal level. Add some daily potassium supplement or high potassium diet over the next week or so. Minimal caffeine use. Follow-up with the primary care. If the symptoms persist often enough, we could try to set you up with a recording device to record your rhythm over the time period of a week or so just to be certain on what is happening during your symptoms. Otherwise episodes like this will commonly phase out with good hydration and electrolytes. I provided the names of a couple of clinics in the [facility] area. The one provider, and not fly, is just one of the providers at that [facility]. You could see if the any of the providers are accepting new patients. Discharge Date/Time: 11/17/21 15:55
--- NOTE | 2021-11-17 14:08 | XRAY Report ---
PROCEDURE: Chest 1 View X-Ray INDICATIONS: Chest pain TECHNIQUE: One view of the chest was acquired. COMPARISON: 10/26/2020 chest x-ray FINDINGS: Surgical changes and devices: None. Lungs and pleura: No pleural effusions or pneumothorax. Lungs are clear. Mediastinum: Mediastinal contours appear normal. Heart size is normal. Bones and chest wall: No suspicious bony lesions. Overlying soft tissues appear unremarkable. IMPRESSION: No acute process. Reviewed by: Tha Patterson MD on 11/17/2021 2:07 PM PDT Approved by: Tha Patterson MD on 11/17/2021 2:07 PM PDT Station ID: [id number]
[2021-11-17 14:49] LABS: BASOPHILS # (AUTO) 0.1 10^3/uL (0.0-0.1); BASOPHILS % (AUTO) 0.6 %; EOSINOPHILS # (AUTO) 0.3 10^3/uL (0.0-0.7); EOSINOPHILS % (AUTO) 2.9 %; HCT - HEMATOCRIT 41.1 % (37.0-47.0); LYMPHOCYTES # (AUTO) 2.7 10^3/uL (1.5-3.5); LYMPHOCYTES % (AUTO) 26.8 %; MEAN CORPUSCULAR HEMOGLOBIN 27.1 pg (27.0-31.0); MEAN CORPUSCULAR HGB CONC 31.6 g/dL (32.0-36.0); MEAN CORPUSCULAR VOLUME 85.6 fL (81.0-99.0); MEAN PLATELET VOLUME 10.3 fL (7.9-10.8); MONOCYTES # (AUTO) 0.5 10^3/uL (0.0-1.0); MONOCYTES % (AUTO) 4.6 %; NEUTROPHILS # (AUTO) 6.5 10^3/uL (1.5-6.6); NEUTROPHILS % (AUTO) 64.9 %; PLT - PLATELET COUNT 304 10^3/uL (130-450); RED CELL DISTRIBUTION WIDTH 12.9 % (12.0-15.0)
[2021-11-17 15:04] LABS: ALBUMIN 4.1 g/dL (3.2-5.5); ALBUMIN/GLOBULIN RATIO 1.2 (1.0-2.2); BILIRUBIN,TOTAL 0.3 mg/dL (0.2-1.0); CALCIUM 9.8 mg/dL (8.5-10.3); CREATININE 0.7 mg/dL (0.4-1.0); POTASSIUM 3.8 mmol/L (3.5-5.0); TOTAL PROTEIN 7.6 g/dL (6.7-8.2)
[2021-11-17 15:50] VITALS: BP 135/75
== END 2021-11-17 15:55 | disposition home or self-care (01) ==
LOC: ED 13:31
DX: R00.2 Palpitations (principal)
CPT/HCPCS: 36415; 80053; 83690; 83735; 84443; 84484; 85025; 93005; 99284

== ENCOUNTER 2021-12-18 23:02 | Emergency (ER) | payer MEDICAID ==
[2021-12-18 23:10] VITALS: BP 136/87
== END 2021-12-19 00:37 | disposition left against medical advice (07) ==
LOC: ED 23:02
DX: Z53.21 Procedure and treatment not carried out due to patient leaving prior to being seen by health care provider (principal)
CPT/HCPCS: 93005

== ENCOUNTER 2022-01-06 15:46 | Emergency (ER) | payer MEDICAID ==
[2022-01-06 16:00] VITALS: BP 135/74
--- NOTE | 2022-01-06 16:43 | ED Physician Documentation ---
History of Present Illness - Stated complaint Stated Complaint: CHEST PX,UPPER BACK PX - Chief complaint Chief Complaint: Cardiac - History obtained from History obtained from: Patient - History of Present Illness Pain level max: 5 Pain level now: 0 - Additonal information Additional information: Patient is a 31-year-old female who presents to the emergency department complaining of chest pain and palpitations ongoing for the past several weeks. Nothing makes it better or worse. She states that the palpitations feel like a sharp pain for 1 to 2 seconds and then "my heart drops". She states that these have decreased in frequency since cutting back on caffeine. She states occasionally she does have central chest pain that feels sharp as well, this normally lasts for a few minutes at a time. Nothing makes it better or worse. No change with breathing. She states she has not been sleeping well as she has a 3-month-old at home. The 3-month-old is currently teething according to the patient. She breast-feeds the patient as well. There is no family history of coronary disease, especially young coronary disease. No fevers. No chills. No recent travel. The delivery was via . No cough. No congestion. No fever. Review of Systems Constitutional: denies: Fever, Chills Respiratory: denies: Cough GI: denies: Nausea, Vomiting, Diarrhea Musculoskeletal: denies: Neck pain, Back pain Neurologic: denies: Headache PD PAST MEDICAL HISTORY - Past Medical History Cardiovascular: None Respiratory: None Neuro: None Endocrine/Autoimmune: None GI: None HEALTH ACTUARY: None : None Psych: Depression, Anxiety, Obsessive compulsive disorder Musculoskeletal: None Derm: None - Past Surgical History Past Surgical History: No /HEALTH ACTUARY: section - Present Medications Home Medications: Ambulatory Orders Medication Instructions Recorded Confirmed No Known Home Medications 10/26/20 01/06/22 - Allergies Allergies/Adverse Reactions: Allergies Allergy/AdvReac Type Severity Reaction Status Date / Time mushroom Allergy Anaphylaxis Verified 01/06/22 16:00 sulfamethoxazole Allergy Hives Verified 01/06/22 16:00 [From Bactrim] trimethoprim [From Bactrim] Allergy Hives Verified 01/06/22 16:00 - Social History Does the pt smoke?: No Smoking Status: Never smoker Does the pt drink ETOH?: Yes Does the pt have substance abuse?: No - Immunizations Immunizations are current?: Yes - POLST Patient has POLST: No PD ED PE NORMAL - Vitals Vital signs reviewed: Yes - General General: Alert and oriented X 3, No acute distress - HEENT HEENT: PERRL, Moist mucous membranes - Neck Neck: Supple, no meningeal sign - Cardiac Cardiac: RRR, No murmur, No gallop, No rub, Strong equal pulses, Other (No tenderness over the anterior chest wall.) - Respiratory Respiratory: No respiratory distress, Clear bilaterally - Abdomen Abdomen: Soft, Non tender, Non distended - Derm Derm: Warm and dry - Extremities Extremities: No edema, No calf tenderness / cord - Neuro Neuro: Alert and oriented X 3 - Psych Psych: Normal mood, Normal affect Results - Vitals Vitals: Vital Signs - 24 hr 01/06/22 15:54 Temperature 36.3 C L Heart Rate 71 Respiratory 16 Rate Blood Pressure 135/74 H O2 Saturation 100 Oxygen O2 Source Room air - EKG (time done) 1612 Rate: Rate (enter#) (76) Rhythm: NSR [place]: Normal Intervals: Normal SD QRS: Normal Ischemia: Normal ST segments - Labs Labs: Laboratory Tests 01/06/22 01/06/22 01/06/22 16:36 16:36 16:36 WBC 10.7 RBC 4.82 Hgb 12.8 Hct 40.6 MCV 84.2 MCH 26.6 L MCHC 31.5 L RDW 13.8 Plt Count 287 MPV 10.0 Neut # (Auto) 7.1 H Lymph # (Auto) 2.8 [place] # (Auto) 0.5 Eos # (Auto) 0.2 Baso # (Auto) 0.1 Absolute Nucleated RBC 0.00 Nucleated RBC % 0.0 Sodium 138 Potassium 3.9 Chloride 102 Carbon Dioxide 26 Anion Gap 10.0 BUN 13 Creatinine 0.6 Estimated GFR (MDRD) 117 Glucose 93 Calcium 9.6 Total Bilirubin 0.3 AST 16 ALT 16 Alkaline Phosphatase 68 Troponin I High Sens < 2.3 L Total Protein 6.9 Albumin 4.0 Globulin 2.9 Albumin/Globulin Ratio 1.4 Lipase 50 - Rads (name of study) Chest x-ray Radiology: Final report received, EMP read contemporaneously, See rad report (No acute abnormality) PD MEDICAL DECISION MAKING - ED course Complexity details: reviewed results, re-evaluated patient, considered differential (No ST elevation VA, no aortic dissection, no PE, no tension pneumothorax, no aortic aneurysm), d/w patient ED course: 31-year-old female presents to the emergency department complaining of palpitations and intermittent chest pain over the past several months. Currently asymptomatic. No palpitations in the emergency department while on telemetry. Based on her history of the palpitations, sounds as if these are most likely premature ventricular contractions. Recommend that she have a H olter monitor/Zio patch placed by her doctor for monitoring. No significant lab abnormalities. No significant EKG or x-ray abnormalities. I will have her follow-up with her doctor for further care. No evidence of PE. Patient counseled regarding signs and symptoms for which I believe and urgent re- evaluation would be necessary. Patient with good understanding of and agreement to plan and is comfortable going home at this time This document was made in part using voice recognition software. While efforts are made to proofread this document, sound alike and grammatical errors may occur. Departure - Departure Disposition: 01 Home, Self Care Clinical Impression: Palpitations Chest pain Qualifiers: Chest pain type: unspecified Qualified Code(s): R07.9 - Chest pain, unspecified Condition: Good Instructions: ED Chest Pain NonCardiac, ED Palpitations Follow-Up: your,doctor in 1 week [Other] Comments: Your testing is normal today. Please follow up with your doctor for further care. Return if you worsen. Your doctor can order a heart monitor for your palpitations. Discharge Date/Time: 01/06/22 17:44
[2022-01-06 16:44] LABS: BASOPHILS # (AUTO) 0.1 10^3/uL (0.0-0.1); BASOPHILS % (AUTO) 0.6 %; EOSINOPHILS # (AUTO) 0.2 10^3/uL (0.0-0.7); EOSINOPHILS % (AUTO) 1.7 %; HCT - HEMATOCRIT 40.6 % (37.0-47.0); HGB - HEMOGLOBIN 12.8 g/dL (12.0-16.0); LYMPHOCYTES # (AUTO) 2.8 10^3/uL (1.5-3.5); LYMPHOCYTES % (AUTO) 26.2 %; MEAN CORPUSCULAR HEMOGLOBIN 26.6 pg (27.0-31.0); MEAN CORPUSCULAR HGB CONC 31.5 g/dL (32.0-36.0); MEAN CORPUSCULAR VOLUME 84.2 fL (81.0-99.0); MONOCYTES # (AUTO) 0.5 10^3/uL (0.0-1.0); MONOCYTES % (AUTO) 5.1 %; NEUTROPHILS # (AUTO) 7.1 10^3/uL (1.5-6.6); NEUTROPHILS % (AUTO) 66.2 %; PLT - PLATELET COUNT 287 10^3/uL (130-450); RED BLOOD COUNT 4.82 10^6/uL (4.20-5.40); RED CELL DISTRIBUTION WIDTH 13.8 % (12.0-15.0); WHITE BLOOD COUNT 10.7 x10^3/uL (4.8-10.8)
[2022-01-06 16:58] LABS: ALBUMIN/GLOBULIN RATIO 1.4 (1.0-2.2); BILIRUBIN,TOTAL 0.3 mg/dL (0.2-1.0); CALCIUM 9.6 mg/dL (8.5-10.3); CREATININE 0.6 mg/dL (0.4-1.0); POTASSIUM 3.9 mmol/L (3.5-5.0); TOTAL PROTEIN 6.9 g/dL (6.7-8.2)
--- NOTE | 2022-01-06 17:13 | XRAY Report ---
PROCEDURE: Chest 1 View X-Ray INDICATIONS: Chest Pain TECHNIQUE: One view of the chest was acquired. COMPARISON: Chest 1 view, 11/17/2021 FINDINGS: Surgical changes and devices: None. Lungs and pleura: No pleural effusions or pneumothorax. Lungs are clear. Mediastinum: Mediastinal contours appear normal. Heart size is normal. Bones and chest wall: No suspicious bony lesions. Overlying soft tissues appear unremarkable. IMPRESSION: No acute cardiopulmonary disease. Reviewed by: Pete Waller MD on 01/06/2022 5:12 PM PDT Approved by: Pete Waller MD on 01/06/2022 5:12 PM PDT Station ID: [id number]
== END 2022-01-06 17:44 | disposition home or self-care (01) ==
LOC: ED 15:46
DX: R07.9 Chest pain, unspecified (principal); R00.2 Palpitations
CPT/HCPCS: 36415; 80053; 83690; 84484; 85025; 93005; 99284

== ENCOUNTER 2022-02-19 08:00 | Outpatient (CLI) | payer MEDICAID | END 2022-02-19 23:59 | disposition home or self-care (01) | LOC: LAB 08:00 | PROVIDERS: ATTEND Registered Nurse | DX: R39.15 Urgency of urination (principal); R82.79 Other abnormal findings on microbiological examination of urine | CPT/HCPCS: 87086 ==

== ENCOUNTER 2022-06-29 15:03 | Outpatient (CLI) | payer SELFPAY | END 2022-06-29 15:04 | disposition EMS.NT | LOC: MERGE 15:03 → EMS 15:03 | DX: R42 Dizziness and giddiness (principal); F41.9 Anxiety disorder, unspecified ==

== ENCOUNTER 2022-07-06 12:44 | Emergency (ER) | payer MEDICAID ==
[2022-07-06 13:15] LABS: BASOPHILS # (AUTO) 0.1 10^3/uL (0.0-0.1); BASOPHILS % (AUTO) 0.5 %; EOSINOPHILS # (AUTO) 0.1 10^3/uL (0.0-0.7); EOSINOPHILS % (AUTO) 0.9 %; HCT - HEMATOCRIT 45.2 % (37.0-47.0); HGB - HEMOGLOBIN 14.4 g/dL (12.0-16.0); LYMPHOCYTES # (AUTO) 2.7 10^3/uL (1.5-3.5); LYMPHOCYTES % (AUTO) 25.6 %; MEAN CORPUSCULAR HEMOGLOBIN 27.8 pg (27.0-31.0); MEAN CORPUSCULAR HGB CONC 31.9 g/dL (32.0-36.0); MEAN CORPUSCULAR VOLUME 87.3 fL (81.0-99.0); MEAN PLATELET VOLUME 9.8 fL (7.9-10.8); MONOCYTES # (AUTO) 0.5 10^3/uL (0.0-1.0); MONOCYTES % (AUTO) 4.6 %; NEUTROPHILS # (AUTO) 7.2 10^3/uL (1.5-6.6); NEUTROPHILS % (AUTO) 68.1 %; PLT - PLATELET COUNT 291 10^3/uL (130-450); RED BLOOD COUNT 5.18 10^6/uL (4.20-5.40); RED CELL DISTRIBUTION WIDTH 12.7 % (12.0-15.0); WHITE BLOOD COUNT 10.5 x10^3/uL (4.8-10.8)
[2022-07-06 13:20] LABS: BILIRUBIN,URINE NEGATIVE (NEGATIVE); GLUCOSE, URINE (UA) NEGATIVE (NEGATIVE); KETONES,URINE (UA) NEGATIVE (NEGATIVE); LEUKOCYTE ESTERASE, URINE NEGATIVE (NEGATIVE); NITRITE,URINE NEGATIVE (NEGATIVE); OCCULT BLOOD,URINE NEGATIVE (NEGATIVE); PROTEIN,URINE NEGATIVE (NEGATIVE); UROBILINOGEN,URINE 0.2 (NORMAL) E.U./dL (NORMAL)
[2022-07-06 13:22] LABS: CLARITY,URINE CLEAR (CLEAR); HCG UR QUAL NEGATIVE
--- NOTE | 2022-07-06 13:28 | ED Physician Documentation ---
PD HPI ABD PAIN - Stated complaint Stated Complaint: LOWER ABD PX - Chief complaint Chief Complaint: Abd Pain - History obtained from History obtained from: Patient - Additional information Additional information: 32-year-old woman presents for evaluation of lower abdominal pain. She is 9 months out from a and for The last 6 or 7 months had intermittent stabbing pains in the right lower quadrant. She was evaluated several months ago in [place] for same with negative work-up including CT. States that she has the pain for a couple of days may be a few times a month. She has not had a normal menses since giving , but she is still breast-feeding. She has had some occasional spotting. For the last 4 days she has had pain now starting in the left lower quadrant and now in the right lower quadrant different than her usual right lower quadrant pain. She denies nausea or fevers. Review of Systems Constitutional: denies: Fever, Chills Nose: denies: Rhinorrhea / runny nose Cardiac: denies: Chest pain / pressure, Palpitations Respiratory: denies: Dyspnea, Cough GI: reports: Abdominal Pain. 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: section - Present Medications Home Medications: Ambulatory Orders Medication Instructions Recorded Confirmed No Known Home Medications 10/26/20 07/06/22 - Allergies Allergies/Adverse Reactions: Allergies Allergy/AdvReac Type Severity Reaction Status Date / Time mushroom Allergy Anaphylaxis Verified 07/06/22 12:52 sulfamethoxazole Allergy Hives Verified 07/06/22 12:52 [From Bactrim] trimethoprim [From Bactrim] Allergy Hives Verified 07/06/22 12:52 - Social History Does the pt smoke?: No Smoking Status: Never smoker Does the pt drink ETOH?: No Does the pt have substance abuse?: No - Immunizations Immunizations are current?: No Immunizations: Other immun not current - POLST Patient has POLST: No PD ED PE NORMAL - Vitals Vital signs reviewed: Yes - General General: Alert and oriented X 3, No acute distress - Cardiac Cardiac: RRR, No murmur - Respiratory Respiratory: No respiratory distress, Clear bilaterally - Abdomen Abdomen: Normal bowel sounds, Soft, Other (Mild tenderness in the left lower quadrant, more so than the right lower quadrant, well-healed Pfannenstiel incision.) - Back Back: No CVA TTP, No spinal TTP - Derm Derm: Normal color, Warm and dry - Neuro Neuro: Alert and oriented X 3, Normal speech Results - Vitals Vitals: Vital Signs - 24 hr 07/06/22 07/06/22 12:52 15: Temperature 36.3 C L Heart Rate 75 80 Respiratory 18 16 Rate Blood Pressure 126/73 119/77 O2 Saturation 99 97 Oxygen O2 Source Room air - Labs Labs: Laboratory Tests 07/06/22 07/06/22 07/06/22 13:00 13:10 13:10 WBC 10.5 RBC 5.18 Hgb 14.4 Hct 45.2 MCV 87.3 MCH 27.8 MCHC 31.9 L RDW 12.7 Plt Count 291 MPV 9.8 Neut # (Auto) 7.2 H Lymph # (Auto) 2.7 [place] # (Auto) 0.5 Eos # (Auto) 0.1 Baso # (Auto) 0.1 Absolute Nucleated RBC 0.00 Nucleated RBC % 0.0 Sodium 134 L Potassium 3.9 Chloride 98 L Carbon Dioxide 27 Anion Gap 9.0 BUN 11 Creatinine 0.7 Estimated GFR (MDRD) 98 Glucose 89 Calcium 9.2 Total Bilirubin 1.0 AST 22 ALT 16 Alkaline Phosphatase 77 Total Protein 7.8 Albumin 4.6 Globulin 3.2 Albumin/Globulin Ratio 1.4 Lipase 42 Urine Color STRAW Urine Clarity CLEAR Urine pH 6.0 Ur Specific [place] <=1.005 Urine Protein NEGATIVE Urine Glucose (UA) NEGATIVE Urine Ketones NEGATIVE Urine Occult Blood NEGATIVE Urine Nitrite NEGATIVE Urine Bilirubin NEGATIVE Urine Urobilinogen 0.2 (NORMAL) Ur Leukocyte Esterase NEGATIVE Ur Microscopic Review NOT INDICATED Urine Culture Comments NOT INDICATED Urine HCG, Qual NEGATIVE PD Medical Decision Making - ED course ED course: 32-year-old woman has a lot of health anxiety and she is worried she has colon cancer appendicitis. Prior to any diagnostics she asks me "if I need surgery for my appendicitis, will I ?" CBC reviewed and normal, CMP reviewed and normal, urine reviewed and normal, urine reviewed and negative. CT with IV contrast interpreted independently by me and and final read reviewed. Basically normal, she does have some prominent balls of stool in the rectum which might cause stabbing lower abdominal pain. Prior to discharge she wanted to clarify that the stool we were seeing on the CT was not food service representative of tumors. She asked this several times to both me and the nurse hopefully with reassurance. Departure - Departure Disposition: 01 Home, Self Care Clinical Impression: Abdominal pain, Constipation Condition: Good Record reviewed to determine appropriate education?: Yes Instructions: ED Abdominal Pain Female Non-Specific Abdominal Pain, ED Constipation Comments: As discussed, your CAT scan is normal save for some prominent balls of stool in your rectum. I would recommend of mild laxative such as MiraLAX and drink plenty of fluids. Return if worsening. There is no sign of serious disease on the CAT scan including those things were worried about such as colon cancer or appendicitis. Call your doctor to arrange a follow-up appointment, make the next available appointment. In the interim, return anytime if worse or if new symptoms develop. Discharge Date/Time: 07/06/22 15:25
[2022-07-06 13:30] LABS: ALBUMIN 4.6 g/dL (3.2-5.5); ALBUMIN/GLOBULIN RATIO 1.4 (1.0-2.2); CALCIUM 9.2 mg/dL (8.5-10.3); CREATININE 0.7 mg/dL (0.4-1.0); POTASSIUM 3.9 mmol/L (3.5-5.0); TOTAL PROTEIN 7.8 g/dL (6.7-8.2)
--- NOTE | 2022-07-06 15:07 | CT Report ---
PROCEDURE: ABDOMEN/PELVIS W INDICATIONS: IV only, lower abdominal pain. CONTRAST: 100ml omni 300 TECHNIQUE: After the administration of IV contrast, 5 mm thick sections acquired from the diaphragms to the symp hysis. 5 mm thick coronal and sagittal reformats were acquired. For radiation dose reduction, the f ollowing was used: automated exposure control, adjustment of mA and/or kV according to patient size. COMPARISON: 01/03/2021 FINDINGS: Image quality: Excellent. ABDOMEN: Lung bases: Lung bases are clear. Heart size is normal. Solid organs: Liver and spleen are normal in size and enhancement. 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 Gallbladder wall does not appear thic kened. Biliary system is non dilated. Pancreas enhances normally. No adrenal nodules. Kidneys d emonstrate normal size and enhancement, without hydronephrosis. Peritoneum and bowel: Bowel loops demonstrate normal wall thickness and caliber. No free fluid or a ir. A normal appendix is seen. Nodes and vessels: No retroperitoneal or mesenteric adenopathy by size criteria. Aorta and inferior vena cava are normal in size. Incidental note is made of a circumaortic left renal vein. Miscellaneous: No ventral hernias. PELVIS: Genitourinary: Bladder wall thickness is normal. The uterus demonstrates an unremarkable appearance for age. No adnexal masses are seen. Miscellaneous: No inguinal hernias or adenopathy. Bones: No suspicious bony lesions. No vertebral body compression fractures. IMPRESSION: A cause of lower abdominal pain is not identified. Normal appendix. Additional findings: Accessory splenule Circumaortic left renal vein Reviewed by: Abhishek Romeo MD on 07/06/2022 2:05 PM [place] Approved by: Abhishek Romeo MD on 07/06/2022 2:05 PM [place] Station ID: [id number]
[2022-07-06] MEDS ORDERED: iohexoL-300 100 ML VIAL IVP ONE (15:22)
[2022-07-06 15:24] VITALS: BP 119/77
== END 2022-07-06 15:25 | disposition home or self-care (01) ==
LOC: ED 12:44
DX: R10.31 Right lower quadrant pain (principal); K59.00 Constipation, unspecified
CPT/HCPCS: 36415; 80053; 81001; 81003; 81025; 83690; 85025; 87086; 99283; 99284

== ENCOUNTER 2022-12-17 12:43 | Outpatient (CLI) | payer MEDICAID ==
--- NOTE | 2022-12-17 19:27 | Ultrasound Report ---
PROCEDURE: OB First Trimester INDICATIONS: POSITIVE TEST OUTSIDE/PRIOR DATING DATA: Last menstrual period (LMP): 10/14/2022. LMP-based estimated date of delivery ([place]ATER[place]): 07/21/2023. First dating scan (date and location): 620 01/21/2023. Estimated date of delivery (KATER[place]) from first dating scan: 07/26/2023. TECHNIQUE: Real-time scanning was performed of the fetus and maternal pelvic organs, with image documentation. COMPARISON: None FINDINGS: Intrauterine gestational sac present. Embryo: [place]-rump length 1.94 cm corresponds with 8 week 3 day gestation. Heart rate: 167 bpm. Other: No perigestational fluid collection. Measurement variability in dating: +/- 4 weeks by LMP, +/- 7 days by mean sac diameter (use before 6 weeks gestation if crown-rump length not able to be measured), +/- 5 days by crown-rump length (6-12 weeks gestation). Maternal organs: Left ovarian corpus luteum cyst 1.4 cm IMPRESSION: Single live intrauterine consistent with 8 week 3 day gestation Reviewed by: Leonid Huggins MD on 12/17/2022 6:26 PM JANIE Approved by: Leonid Huggins MD on 12/17/2022 6:26 PM AKDT Station ID: [id number]
== END 2022-12-17 12:44 | disposition home or self-care (01) ==
LOC: DI 12:43
PROVIDERS: ATTEND Obstetrics & Gynecology
DX: Z34.81 Encounter for supervision of other normal pregnancy, first trimester (principal)

== ENCOUNTER 2023-01-10 00:49 | Emergency (ER) | payer MEDICAID ==
--- NOTE | 2023-01-10 01:19 | ED Physician Documentation ---
History of Present Illness - Stated complaint Stated Complaint: FEMALE - Chief complaint Chief Complaint: General - Additonal information Additional information: at approximately 11wks gestation presents for vaginal spotting earlier today after intercourse with partner. States that it was "just enough to turn the toilet tissue pink" and she noticed it one time while using the restroom. Tonight she states she saw abnormal discharge and became extremely worried and came in for evaluation. Previous US confirmation of IUP. Blood type A+ (patient showed me results of previous type and screen records on her phone). Currently asymptomatic Review of Systems Constitutional: denies: Fever, Chills : reports: Now EGA, Other (vaginal spotting). 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 - Present Medications Home Medications: Ambulatory Orders Medication Instructions Recorded Confirmed No Known Home Medications 10/26/20 07/06/22 - Allergies Allergies/Adverse Reactions: Allergies Allergy/AdvReac Type Severity Reaction Status Date / Time mushroom Allergy Anaphylaxis Verified 01/10/23 00:59 sulfamethoxazole Allergy Hives Verified 01/10/23 00:59 [From Bactrim] trimethoprim [From Bactrim] Allergy Hives Verified 01/10/23 00:59 - Social History Does the pt smoke?: No Smoking Status: Never smoker Does the pt drink ETOH?: No Does the pt have substance abuse?: No - Immunizations Immunizations are current?: No Immunizations: Other immun not current - POLST Patient has POLST: No PD ED PE NORMAL - Vitals Vital signs reviewed: Yes - General General: Alert and oriented X 3, No acute distress, Well developed/nourished - HEENT HEENT: Atraumatic - Cardiac Cardiac: RRR, No murmur - Respiratory Respiratory: No respiratory distress, Clear bilaterally - Abdomen Abdomen: Soft, Non tender, Non distended - Derm Derm: Normal color, Warm and dry, No rash - Extremities Extremities: No deformity, Normal ROM s pain - Neuro Neuro: Alert and oriented X 3, 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 Asymptomatic currently. Patient showed me a picture of her discharge and this appears to be normal appearing vaginal discharge without blood. We do not have ultrasound imaging available at this time. Patient informed of present lack of ultrasound and she states she will come back tomorrow. Departure - Departure Disposition: 01 Home, Self Care Clinical Impression: Vaginal spotting Condition: Good Instructions: Bleeding Early Preg Forms: PCP List Discharge Date/Time: 01/10/23 01:21
[2023-01-10 01:27] VITALS: BP 134/78
== END 2023-01-10 01:21 | disposition home or self-care (01) ==
LOC: ED 00:49
DX: O26.851 Spotting complicating pregnancy, first trimester (principal); Z3A.11 11 weeks gestation of pregnancy
CPT/HCPCS: 99283; 99284

== ENCOUNTER 2023-01-10 13:50 | Emergency (ER) | payer MEDICAID ==
[2023-01-10 14:15] LABS: BASOPHILS # (AUTO) 0.1 10^3/uL (0.0-0.1); BASOPHILS % (AUTO) 0.5 %; EOSINOPHILS # (AUTO) 0.2 10^3/uL (0.0-0.7); EOSINOPHILS % (AUTO) 1.5 %; HCT - HEMATOCRIT 42.5 % (37.0-47.0); HGB - HEMOGLOBIN 13.4 g/dL (12.0-16.0); LYMPHOCYTES # (AUTO) 3.2 10^3/uL (1.5-3.5); LYMPHOCYTES % (AUTO) 25.8 %; MEAN CORPUSCULAR HEMOGLOBIN 28.6 pg (27.0-31.0); MEAN CORPUSCULAR HGB CONC 31.5 g/dL (32.0-36.0); MEAN CORPUSCULAR VOLUME 90.6 fL (81.0-99.0); MEAN PLATELET VOLUME 9.9 fL (7.9-10.8); MONOCYTES # (AUTO) 0.6 10^3/uL (0.0-1.0); MONOCYTES % (AUTO) 5.1 %; NEUTROPHILS # (AUTO) 8.3 10^3/uL (1.5-6.6); NEUTROPHILS % (AUTO) 66.9 %; PLT - PLATELET COUNT 285 10^3/uL (130-450); RED BLOOD COUNT 4.69 10^6/uL (4.20-5.40); RED CELL DISTRIBUTION WIDTH 13.1 % (12.0-15.0); WHITE BLOOD COUNT 12.5 x10^3/uL (4.8-10.8)
[2023-01-10 14:32] LABS: BILIRUBIN,URINE NEGATIVE (NEGATIVE); GLUCOSE, URINE (UA) NEGATIVE (NEGATIVE); KETONES,URINE (UA) NEGATIVE (NEGATIVE); LEUKOCYTE ESTERASE, URINE NEGATIVE (NEGATIVE); NITRITE,URINE NEGATIVE (NEGATIVE); OCCULT BLOOD,URINE NEGATIVE (NEGATIVE); PROTEIN,URINE NEGATIVE (NEGATIVE); UROBILINOGEN,URINE 0.2 (NORMAL) E.U./dL (NORMAL)
[2023-01-10 14:36] LABS: ALBUMIN 4.2 g/dL (3.2-5.5); ALBUMIN/GLOBULIN RATIO 1.4 (1.0-2.2); BILIRUBIN,TOTAL 0.2 mg/dL (0.2-1.0); CALCIUM 9.8 mg/dL (8.5-10.3); CREATININE 0.5 mg/dL (0.6-1.3); POTASSIUM 3.9 mmol/L (3.5-4.5); TOTAL PROTEIN 7.2 g/dL (6.4-8.9)
[2023-01-10 14:47] LABS: CLARITY,URINE CLEAR (CLEAR)
--- NOTE | 2023-01-10 15:44 | ED Physician Documentation ---
PD HPI FEMALE - Stated complaint Stated Complaint: FEMALE GI - Chief complaint Chief Complaint: Abd Pain - History obtained from History obtained from: Patient - Additional information Additional information: Patient is a 32-year-old female presenting for evaluation of vaginal bleeding. She is approximately 12 weeks . She had sexual intercourse with her 2 nights ago and has had spotting since then when she wipes. She denies abdominal cramping or heavy bleeding. She has had a confirmatory ultrasound demonstrating IUP. She presented to the emergency department last night but ultrasound was not performed as it was not available at that time. Patient is a . Her blood type is a positive. 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 HEENT: None Psych: Obsessive compulsive disorder, Depression, Anxiety Musculoskeletal: None Derm: None - Past Surgical History Past Surgical History: Yes /INFORMATION SYSTEMS SECURITY DEVELOPER: section - Present Medications Home Medications: Ambulatory Orders Medication Instructions Recorded Confirmed Vit No.130/Iron/Folic 1 each PO DAILY 01/10/23 01/10/23 [ Vitamins] - Allergies Allergies/Adverse Reactions: Allergies Allergy/AdvReac Type Severity Reaction Status Date / Time mushroom Allergy Anaphylaxis Verified 01/10/23 13:57 sulfamethoxazole Allergy Hives Verified 01/10/23 13:57 [From Bactrim] trimethoprim [From Bactrim] Allergy Hives Verified 01/10/23 13:57 - Social History Does the pt smoke?: No Smoking Status: Never smoker Does the pt drink ETOH?: No Does the pt have substance abuse?: No - Immunizations Immunizations are current?: No Immunizations: Other immun not current - POLST Patient has POLST: No PD ED PE NORMAL - General General: Alert and oriented X 3, No acute distress, Well developed/nourished - HEENT HEENT: Atraumatic - Neck Neck: Supple, no meningeal sign - Cardiac Cardiac: RRR, No murmur - Respiratory Respiratory: No respiratory distress, Clear bilaterally - Abdomen Abdomen: Soft, Non tender, Non distended - Derm Derm: Warm and dry Results - Vitals Vitals: Vital Signs - 24 hr 01/10/23 01/10/23 01/10/23 13:55 16:47 17:06 Temperature 36.7 C 36.9 C Heart Rate 87 82 83 Respiratory 15 18 15 Rate Blood Pressure 136/79 H 138/77 H 137/84 H O2 Saturation 100 100 98 Oxygen O2 Source Room air - Labs Labs: Laboratory Tests 01/10/23 01/10/23 01/10/23 14:07 14:07 14:29 WBC 12.5 H RBC 4.69 Hgb 13.4 Hct 42.5 MCV 90.6 MCH 28.6 MCHC 31.5 L RDW 13.1 Plt Count 285 MPV 9.9 Neut # (Auto) 8.3 H Lymph # (Auto) 3.2 Carbon # (Auto) 0.6 Eos # (Auto) 0.2 Baso # (Auto) 0.1 Absolute Nucleated RBC 0.00 Nucleated RBC % 0.0 Sodium 136 Potassium 3.9 Chloride 104 Carbon Dioxide 25 Anion Gap 7.0 BUN 7 Creatinine 0.5 L Estimated GFR (MDRD) 144 Glucose 88 Calcium 9.8 Total Bilirubin 0.2 AST 12 ALT 10 Alkaline Phosphatase 54 Total Protein 7.2 Albumin 4.2 Globulin 3.0 Albumin/Globulin Ratio 1.4 Lipase 37 Beta HCG, Quant 2897.1 Urine Color YELLOW Urine Clarity CLEAR Urine pH 7.0 Ur Specific [place] <=1.005 Urine Protein NEGATIVE Urine Glucose (UA) NEGATIVE Urine Ketones NEGATIVE Urine Occult Blood NEGATIVE Urine Nitrite NEGATIVE Urine Bilirubin NEGATIVE Urine Urobilinogen 0.2 (NORMAL) Ur Leukocyte Esterase NEGATIVE Ur Microscopic Review NOT INDICATED Urine Culture Comments NOT INDICATED PD Medical Decision Making - ED course Complexity details: reviewed results, re-evaluated patient, d/w patient ED course: Patient is a 32-year-old female G2, P1 presenting for evaluation of vaginal spotting who believes she is approximately 12 weeks . Patient states that she feels something is been different with this as she feels different than her prior . Vital signs are stable and abdominal exam is benign. Bedside ultrasound shows intrauterine but I was not able to identify cardiac activity thus a formal ultrasound was ordered. CBC, chemistries and hCG were obtained and reviewed. hCG is 2800 With no prior for comparison but this seems to be low given her estimated gestational age. Patient's blood type is a positive so thus does not need RhoGAM. Formal ultrasound demonstrates intrauterine with no growth from prior scan and no cardiac activity consistent with demise. On-call OB was consulted and saw the patient in the emergency department with various options given. Patient has elected for expectant management and will follow-up in the office next week. She is counseled on concerning symptoms to return for. 1619 - D/W Fredrick Regarding formal ultrasound with no cardiac activity and no growth since prior scan. He will come see the patient in 5 minutes. Departure - Departure Disposition: 01 Home, Self Care Clinical Impression: IUFD at less than 20 weeks of gestation Condition: Stable Instructions: ED Miscarriage Inevitable Follow-Up: Guevara Alcala MD [Provider Admit Priv/Credential] - Comments: Unfortunately your ultrasound today was not able to detect the baby's heartbeat and it does not appear to be growing any longer. You were seen by Dr. Alcala one of her OB doctors today. Please follow-up in the clinic next week. Return to the ER if you develop any worsening symptoms such as uncontrolled pain or heavy vaginal bleeding where you are bleeding through a pad an hour for several hours or have any concerns. Forms: PCP List Discharge Date/Time: 01/10/23 17:07
--- NOTE | 2023-01-10 16:46 | Ultrasound Report ---
PROCEDURE: OB First Trimester INDICATIONS: vaginal bleeding OUTSIDE/PRIOR DATING DATA: Last menstrual period (LMP): 10/14/2022. LMP-based estimated date of delivery (KATERINA): 07/21/2023. First dating scan (date and location): 12/17/2022. Estimated date of delivery (KATERINA) from first dating scan: 07/26/2023. TECHNIQUE: Real-time scanning was performed of the fetus and maternal pelvic organs, with image documentation. COMPARISON: 12/17/2022 FINDINGS: Intrauterine gestational sac present. Embryo: There is a single intrauterine gestation measuring approximately 2.1 cm in size which correl ates with approximately 8 weeks and 5 days. This is not significantly changed compared to prior ultra sound which measured 1.94 cm (approximately 8 weeks and 3 days). No motion detected. No c ardiac activity identified on today's study. Other: No perigestational fluid collection. Maternal organs: Ovaries appear within normal limits. There is fluid within the internal cervical os . IMPRESSION: Single intrauterine gestation with estimated sonographic gestational age of approximately 8 weeks and 5 days versus 8 weeks and 3 days on prior study performed several weeks prior. There is no mot ion or cardiac activity on today's evaluation. Findings are consistent with intrauterine demise. Preliminary findings were reported to the emergency Department staff by the glass decorator at 1600 hours . Reviewed by: Carlos Guzman MD on 01/10/2023 3:44 PM JANIE Approved by: Carlos Guzman MD on 01/10/2023 3:44 PM JANIE Station ID: [id number]
--- NOTE | 2023-01-10 17:02 | CONSULTATION NOTE ---
Surgery Consult - Consult Date Consult Date: 01/10/23 Requesting Provider: Frankie Dwyer MD - Chief Complaint Chief Complaint: Vaginal Spotting - Home Meds/Allergies Home Medications: Patient History Medication Instructions Recorded Confirmed Vit No.130/Iron/Folic 1 each PO DAILY 01/10/23 01/10/23 [ Vitamins] Allergies/Adverse Reactions: Allergies Allergy/AdvReac Type Severity Reaction Status Date / Time mushroom Allergy Anaphylaxis Verified 01/10/23 13:57 sulfamethoxazole Allergy Hives Verified 01/10/23 13:57 [From Bactrim] trimethoprim [From Bactrim] Allergy Hives Verified 01/10/23 13:57 - Vital Signs Vital Signs: Last Vital Signs Temp 98.4 F 01/10/23 16:47 Pulse 82 01/10/23 16:47 Resp 18 01/10/23 16:47 BP 138/77 H 01/10/23 16:47 Pulse Ox 100 01/10/23 16:47 O2 Flow Rate - Lab Results Result Diagrams: 01/10/23 14:07 01/10/23 14:07 - Consultation Note Consultation Note: HPI: Patient is a 32-year-old -0-0-1 12 weeks 4 days gestation by LMP consistent with 8-week ultrasound. She came in today after several days of spotting after intercourse. She had not had any significant bleeding. She says recently she felt like something was off with her as most of her symptoms have resolved. Ultrasound today in the ED shows a fetus at approximately 8 weeks gestation with no cardiac activity. She had a previous ultrasound with cardiac activity almost 1 month ago. All other symptoms reviewed and were negative except per HPI. PMH Depression Anxiety Endometriosis PCOS Migraines Ventral hernia PSH Previous classical section OB History -0-0-1 1. 09/25/2021, 41 weeks, 1 day gestation. Classical section, intolerance of labor 2. 01/10/2023: Current , 8-week SAB SH Former smoker. No alcohol or drug use. Family History Mother: Hypertension, uterine cancer, diabetes, depression Paternal grandfather: Diabetes Maternal grandmother: Renal disease Paternal grandmother: Lung disease Allergies Hives Medications vitamins Physical exam: General: Alert, oriented, no acute distress Head: Normal cephalic atraumatic Eyes: PERRLA, extraocular motions intact. Respiratory: Normal rate of respiration. No accessory muscle use, normal respiratory effort. Cardiovascular: Regular rate and rhythm Abdomen: Gravid, nontender, nondistended Extremities: Normal range of motion Neuro: Oriented x3. Normal movements Psych: Tearful, but appropriate mood and affect. Normal judgment and insight : Deferred Preliminary read of ultrasound shows no cardiac activity in 8 weeks gestation of . Labs: H/H: 13.4/42.5, quantitative hC Plan 32-year-old at 12 weeks 4 days gestation with missed 1. Embryonic demise Declined exam as she is not heavily bleeding, just some minor spotting. Discussed that the lack of cardiac activity is consistent with demise as it previously had a heartbeat. Patient was counselled on options including expectant management, medical management, and surgical management. She understands that approximately 80% of patients will spontaneously resolve a missed . We discussed that rates are approximately 95% with medical management, but that this would make the timing more predictable. We also discussed definitive management with D&C. Discussed risks and benefits of all options. She says she is very health anxious, and worries about bleeding, but more worried about being put to sleep as this is her greatest fear in this scenario. Discussed crew member sedation, but depends on how she tolerates light sedation. Patient elects for expectant management at this time and will [facility]. Ibuprofen for pain relief. She is hemodynamically stable. Patient is blood type A positive and will not require rhogam. She understands there is no necessary interval to wait between pregnancies, but that she can try when she and her partner are ready as this was a desired . Counselled patient that approximately 20% of pregnancies end in miscarriage and that there is nothing that she did or did not do that caused the loss of the . Patient was given bleeding precautions and to return to ED if she soaks greater than 2 pads and hour for 2 hours She will call our office if she decides to pursue surgical or medical management. Has a follow-up scheduled on 01/28/2023, but can come in sooner.
[2023-01-10 17:15] VITALS: BP 137/84
== END 2023-01-10 17:07 | disposition home or self-care (01) ==
LOC: ED 13:50
DX: O02.1 Missed abortion (principal); Z87.891 Personal history of nicotine dependence
CPT/HCPCS: 36415; 80053; 81001; 81003; 83690; 84702; 85025; 87086

== ENCOUNTER 2023-01-14 07:49 | Outpatient (CLI) | payer MEDICAID | END 2023-01-14 07:50 | disposition critical access hospital (66) | LOC: EMS 07:49 | DX: O46.91 Antepartum hemorrhage, unspecified, first trimester (principal); R10.30 Lower abdominal pain, unspecified; R11.0 Nausea | CPT/HCPCS: A0425; A0427; A0999 ==

== ENCOUNTER 2023-01-14 08:30 | Emergency (ER) | payer MEDICAID ==
[2023-01-14] MEDS ORDERED: SODIUM CHLORIDE 0.9% 1,000 ML IV STA (08:34)
--- NOTE | 2023-01-14 08:39 | ED Physician Documentation ---
PD HPI FEMALE - Stated complaint Stated Complaint: FEMALE - History obtained from History obtained from: Patient, EMS - Additional information Additional information: 32-year-old -0-1-1 presents by EMS from home for vaginal cramping and bleeding. Patient was seen several days ago at our ER and diagnosed with a missed . Patient discussed management with [facility]KER and elected for medical management. Patient took mifepristone yesterday afternoon and around midnight began experiencing cramping and vaginal bleeding. She states that she was told that the pains would feel like menstrual cramps, however this feels closer to labor pains. EMS administered 8 mg IV Zofran and 100 mcg of fentanyl in route. Patient pain free on arrival. States she is supposed to take misoprostol later today. Review of Systems Constitutional: denies: Fever, Chills : reports: Vaginal bleeding, Other (pelvic pain/cramping). 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 - Present Medications Home Medications: Ambulatory Orders Medication Instructions Recorded Confirmed Ondansetron Odt [Zofran] 4 mg TL Q6H PRN #10 tablet 01/14/23 oxyCODONE [Roxicodone] 5 mg PO Q4-6H PRN #15 tablet 01/14/23 - Allergies Allergies/Adverse Reactions: Allergies Allergy/AdvReac Type Severity Reaction Status Date / Time mushroom Allergy Anaphylaxis Verified 01/14/23 08:41 sulfamethoxazole Allergy Hives Verified 01/14/23 08:41 [From Bactrim] trimethoprim [From Bactrim] Allergy Hives Verified 01/14/23 08:41 - Social History Does the pt smoke?: No Smoking Status: Never smoker Does the pt drink ETOH?: No Does the pt have substance abuse?: No - Immunizations Immunizations are current?: No Immunizations: Other immun not current - POLST Patient has POLST: No PD ED PE NORMAL - Vitals Vital signs reviewed: Yes - General General: Alert and oriented X 3, Well developed/nourished, Other (shivering) - HEENT HEENT: Atraumatic - Cardiac Cardiac: RRR, No murmur, Strong equal pulses - Abdomen Abdomen: Soft, Non tender, Non distended - Female Female : Pt declined - Derm Derm: Normal color, Warm and dry, No rash - Extremities Extremities: No deformity, No tenderness to palpate, Normal ROM s pain, No edema - Neuro Neuro: Alert and oriented X 3, 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, No motor deficit, Normal speech - Psych Psych: Normal mood, Normal affect Results - Vitals Vitals: Vital Signs - 24 hr 01/14/23 01/14/23 01/14/23 08:36 10:41 12:00 Temperature 35.7 C L 36.6 C Heart Rate 67 84 83 Respiratory 16 16 16 Rate Blood Pressure 116/63 121/64 118/64 O2 Saturation 100 98 100 Oxygen O2 Source Room air - Labs Labs: Laboratory Tests 01/14/23 01/14/23 01/14/23 08:49 08:49 08:49 WBC 17.1 H RBC 4.70 Hgb 13.6 Hct 42.2 MCV 89.8 MCH 28.9 MCHC 32.2 RDW 12.8 Plt Count 258 MPV 10.0 Neut # (Auto) 14.6 H Lymph # (Auto) 1.8 Evans # (Auto) 0.6 Eos # (Auto) 0.0 Baso # (Auto) 0.1 Absolute Nucleated RBC 0.00 Nucleated RBC % 0.0 Sodium 135 Potassium 3.8 Chloride 102 Carbon Dioxide 23 Anion Gap 10.0 BUN 7 Creatinine 0.5 L Estimated GFR (MDRD) 144 Glucose 105 H Calcium 9.5 Total Bilirubin 0.3 AST 10 ALT 9 L Alkaline Phosphatase 60 Total Protein 6.9 Albumin 4.0 Globulin 2.9 Albumin/Globulin Ratio 1.4 Blood Type A POSITIVE Antibody Screen NEGATIVE PD Medical Decision Making - ED course Complexity details: reviewed results, re-evaluated patient, considered differential, d/w patient, d/w risk assessment consultant ED course: Severe pelvic pain and cramping after taking mifepristone for a miscarriage. Already given fentanyl, will give toradol. Patient blood type A+, no need for rhogam. Patient declining pelvic exam, stating she would like to wait until after he pain medications Patient stating pain is returning and still does not want me to do a pelvic exam on her. Will discuss case with OBGYN. BOOTMAKER has evaluated the patient at bedside. Patient was offered surgical solution, however patient declined. With normal labs no indication for additional imaging at this time. BOOTMAKER recommended discharge with nausea and pain medications, these were sent to the pharmacy. Patient already has curtis eduled outpatient follow-up with [facility]. Counseled to call the [facility] office if her symptoms worsen or recur. Departure - Departure Disposition: 01 Home, Self Care Clinical Impression: Miscarriage Condition: Stable Instructions: Miscarriage Dc Follow-Up: Qiana Blue DO [Provider Admit Priv/Credential] - Prescriptions: oxyCODONE [Roxicodone] 5 mg PO Q4-6H PRN #15 tablet PRN Reason: Pain Ondansetron Odt [Zofran] 4 mg TL Q6H PRN #10 tablet PRN Reason: Nausea / Vomiting Forms: PCP List Discharge Date/Time: 01/14/23 12:50
[2023-01-14] MEDS ORDERED: PROMETHAZINE INJ 25 MG in SODIUM CHLORIDE 0.9% 50 ML IV STA (08:50)
[2023-01-14] MEDS ORDERED: KETOROLAC 15 MG/ML VIAL IVP STA (08:50)
[2023-01-14 09:06] LABS: BASOPHILS # (AUTO) 0.1 10^3/uL (0.0-0.1); BASOPHILS % (AUTO) 0.4 %; EOSINOPHILS % (AUTO) 0.2 %; HCT - HEMATOCRIT 42.2 % (37.0-47.0); HGB - HEMOGLOBIN 13.6 g/dL (12.0-16.0); LYMPHOCYTES # (AUTO) 1.8 10^3/uL (1.5-3.5); LYMPHOCYTES % (AUTO) 10.6 %; MEAN CORPUSCULAR HEMOGLOBIN 28.9 pg (27.0-31.0); MEAN CORPUSCULAR HGB CONC 32.2 g/dL (32.0-36.0); MEAN CORPUSCULAR VOLUME 89.8 fL (81.0-99.0); MONOCYTES # (AUTO) 0.6 10^3/uL (0.0-1.0); MONOCYTES % (AUTO) 3.2 %; NEUTROPHILS # (AUTO) 14.6 10^3/uL (1.5-6.6); NEUTROPHILS % (AUTO) 85.1 %; PLT - PLATELET COUNT 258 10^3/uL (130-450); RED CELL DISTRIBUTION WIDTH 12.8 % (12.0-15.0); WHITE BLOOD COUNT 17.1 x10^3/uL (4.8-10.8)
[2023-01-14 09:30] LABS: ALBUMIN/GLOBULIN RATIO 1.4 (1.0-2.2); BILIRUBIN,TOTAL 0.3 mg/dL (0.2-1.0); CALCIUM 9.5 mg/dL (8.5-10.3); CREATININE 0.5 mg/dL (0.6-1.3); POTASSIUM 3.8 mmol/L (3.5-4.5); TOTAL PROTEIN 6.9 g/dL (6.4-8.9)
[2023-01-14] MEDS ORDERED: MORPHINE 2 MG/ML CARPUJECT IVP STA (11:13)
[2023-01-14 12:21] VITALS: BP 118/64
== END 2023-01-14 12:50 | disposition home or self-care (01) ==
LOC: EDUNIT# → ED 08:30
DX: O02.1 Missed abortion (principal)
CPT/HCPCS: 36415; 80053; 85025; 86850; 86900; 86901; 96365; 96375; 99283; 99284; J7040

== ENCOUNTER 2023-02-10 08:00 | Outpatient (CLI) | payer MEDICAID ==
[2023-02-10 21:38] LABS: BACTERIAL VAGINOSIS DNA NEGATIVE (NEGATIVE); CANDIDA GLABRATA DNA NEGATIVE (NEGATIVE); CANDIDA GROUP DNA NEGATIVE (NEGATIVE); CANDIDA KRUSEI DNA NEGATIVE (NEGATIVE); TRICHOMONAS VAGINALIS DNA NEGATIVE (NEGATIVE)
== END 2023-02-10 23:59 | disposition home or self-care (01) ==
LOC: LAB.WC 08:00
PROVIDERS: ATTEND Obstetrics & Gynecology
DX: N89.8 Other specified noninflammatory disorders of vagina (principal)
CPT/HCPCS: 81514

== ENCOUNTER 2023-02-15 12:50 | Emergency (ER) | payer MEDICAID ==
[2023-02-15 13:25] LABS: BASOPHILS % (AUTO) 0.3 %; EOSINOPHILS # (AUTO) 0.1 10^3/uL (0.0-0.7); EOSINOPHILS % (AUTO) 1.1 %; HCT - HEMATOCRIT 41.5 % (37.0-47.0); LYMPHOCYTES # (AUTO) 2.6 10^3/uL (1.5-3.5); LYMPHOCYTES % (AUTO) 28.7 %; MEAN CORPUSCULAR HEMOGLOBIN 28.3 pg (27.0-31.0); MEAN CORPUSCULAR HGB CONC 31.3 g/dL (32.0-36.0); MEAN CORPUSCULAR VOLUME 90.2 fL (81.0-99.0); MEAN PLATELET VOLUME 9.8 fL (7.9-10.8); MONOCYTES # (AUTO) 0.3 10^3/uL (0.0-1.0); MONOCYTES % (AUTO) 3.6 %; NEUTROPHILS # (AUTO) 5.9 10^3/uL (1.5-6.6); NEUTROPHILS % (AUTO) 66.1 %; PLT - PLATELET COUNT 244 10^3/uL (130-450); RED CELL DISTRIBUTION WIDTH 12.5 % (12.0-15.0); WHITE BLOOD COUNT 8.9 x10^3/uL (4.8-10.8)
--- NOTE | 2023-02-15 13:34 | XRAY Report ---
PROCEDURE: Chest 1 View X-Ray INDICATIONS: Chest pain TECHNIQUE: One view of the chest was acquired. COMPARISON: 01/07/2022, 11/17/2021, 10/26/2020 FINDINGS: Surgical changes and devices: None. Lungs and pleura: No pleural effusions or pneumothorax. Lungs are clear. Mediastinum: Mediastinal contours appear normal. Heart size is normal. Bones and chest wall: No suspicious bony lesions. Age-appropriate degenerative changes are seen. O verlying soft tissues appear unremarkable. IMPRESSION: No acute cardiopulmonary process. Reviewed by: Abhishek Romeo MD on 02/15/2023 12:32 PM AKEZIO Approved by: Abhishek Romeo MD on 02/15/2023 12:32 PM MADT Station ID: [id number]
[2023-02-15 13:40] LABS: ALBUMIN 4.3 g/dL (3.2-5.5); ALBUMIN/GLOBULIN RATIO 1.6 (1.0-2.2); ALKALINE PHOSPHATASE 62 IU/L (42-121); ALT ALANINE AMINOTRANSFERASE 12 IU/L (10-60); AST ASPARTATE AMINOTRANSFERASE 12 IU/L (10-42); BILIRUBIN,TOTAL 0.3 mg/dL (0.2-1.0); BUN - BLOOD UREA NITROGEN 9 mg/dL (6-20); CALCIUM 9.9 mg/dL (8.5-10.3); CARBON DIOXIDE - CO2 30 mmol/L (21-32); CHLORIDE 104 mmol/L (101-111); CREATININE 0.6 mg/dL (0.6-1.3); GFR - MDRD 117 (>89); GLUCOSE 107 mg/dL (74-104); LIPASE 46 U/L (11-82); POTASSIUM 3.7 mmol/L (3.5-4.5); SODIUM 138 mmol/L (135-145)
[2023-02-15 13:44] LABS: TROPONIN I HIGH SENSITIVITY < 2.3 ng/L (2.3-14.8)
--- NOTE | 2023-02-15 14:27 | ED Physician Documentation ---
PD HPI ABD PAIN - Stated complaint Stated Complaint: CHEST/ABD PX,SOA - Chief complaint Chief Complaint: Abd Pain - History obtained from History obtained from: Patient - History of Present Illness Timing - onset: How many weeks ago (has had epigastric to upper abd pain intermittently for weeks/months. More consistent pain the past few weeks. Notes worse with lying down and bending over, feels better sitting up. Moderately worse with eating. pain consistently upper abd.) Timing - details: Still present (more consistent the past few weeks.), Intermittant Quality: Cramping, Aching, Pain Location: Epigastric Radiation: Upper back Improved by: Position (sitting up) Worsened by: Eating, Position (lying down or bending over.) Associated symptoms: Nausea. No: Fever, Vomiting, Diarrhea, Melena, Hematochezia Similar symptoms before: Has not had sx before Recently seen: Clinic (walk in clinic and was told possible hiatal hernia and instructed to try Prilosec OTC, which she started just 2 days ago.) Review of Systems Constitutional: denies: Fever, Chills Nose: denies: Rhinorrhea / runny nose, Congestion Throat: denies: Sore throat Respiratory: denies: Cough GI: reports: Abdominal Pain (upper abd), Nausea. 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: section - Present Medications Home Medications: Ambulatory Orders Medication Instructions Recorded Confirmed Omeprazole Magnesium 20 mg PO DAILY 02/15/23 02/15/23 Sucralfate [Carafate] 1 gm PO ACHS 10 Days #400 ml 02/15/23 - Allergies Allergies/Adverse Reactions: Allergies Allergy/AdvReac Type Severity Reaction Status Date / Time mushroom Allergy Anaphylaxis Verified 02/15/23 13:00 sulfamethoxazole Allergy Hives Verified 02/15/23 13:00 [From Bactrim] trimethoprim [From Bactrim] Allergy Hives Verified 02/15/23 13:00 - Social History Does the pt smoke?: No Smoking Status: Never smoker Does the pt drink ETOH?: No Does the pt have substance abuse?: No - Immunizations Immunizations are current?: No Immunizations: Other immun not current - POLST Patient has POLST: No PD ED PE NORMAL - Vitals Vital signs reviewed: Yes - General General: Alert and oriented X 3, No acute distress, Well developed/nourished - Neck Neck: Supple, no meningeal sign, No adenopathy - Cardiac Cardiac: RRR, No murmur - Respiratory Respiratory: Clear bilaterally - Abdomen Abdomen: Normal bowel sounds, Soft, Non distended, Other (tender epigastric area with some local guarding. No percussion tenderness nor masses. ) Results - Vitals Vitals: Vital Signs - 24 hr 02/15/23 02/15/23 02/15/23 13:02 13:06 15:06 Temperature 36.6 C 36.6 C Heart Rate 82 82 74 Respiratory 18 18 18 Rate Blood Pressure 126/75 126/75 121/75 O2 Saturation 99 99 97 Oxygen O2 Source Room air - Labs Labs: Laboratory Tests 02/15/23 02/15/23 13:17 13:17 WBC 8.9 RBC 4.60 Hgb 13.0 Hct 41.5 MCV 90.2 MCH 28.3 MCHC 31.3 L RDW 12.5 Plt Count 244 MPV 9.8 Neut # (Auto) 5.9 Lymph # (Auto) 2.6 [place] # (Auto) 0.3 Eos # (Auto) 0.1 Baso # (Auto) 0.0 Absolute Nucleated RBC 0.00 Nucleated RBC % 0.0 Sodium 138 Potassium 3.7 Chloride 104 Carbon Dioxide 30 Anion Gap 4.0 L BUN 9 Creatinine 0.6 Estimated GFR (MDRD) 117 Glucose 107 H Calcium 9.9 Total Bilirubin 0.3 AST 12 ALT 12 Alkaline Phosphatase 62 Troponin I High Sens < 2.3 L Total Protein 7.0 Albumin 4.3 Globulin 2.7 Albumin/Globulin Ratio 1.6 Lipase 46 - Rads (name of study) upper abd US Relevant Findings:: Prelim report reviewed (fatty liver. No acute problems seen in US. Aorta is normal size less that 3 cm. ), EMP independent interpretation of test PD Medical Decision Making - ED course Complexity details: reviewed results (labs and ultrasound without acute process identified. Her symptoms would be c/w gastritis/ulcer and typically would not show on the tests done here. Can treat for presumed gastritis/PUD. ), considered differential (epigastric pain for awhile. Had CT abd few months ago without obvious acute prrocess. With pain upper abd, I felt US would be good choice to eval.), d/w patient Departure - Departure Disposition: 01 Home, Self Care Clinical Impression: Epigastric abdominal pain Condition: Stable Record reviewed to determine appropriate education?: Yes Instructions: ED PUD Vs Gastritis Follow-Up: Miranda Clemons ARNP [Primary Care Provider] - Prescriptions: Sucralfate [Carafate] 1 gm PO ACHS 10 Days #400 ml Comments: Your ultrasound showed normal structures that are evaluated on the ultrasound. There is a slightly fatty liver enlarged which is a relatively common finding. Otherwise your symptoms sound likely to be gastritis/ulcer type symptoms with reflux. I would continue with the omeprazole you recently started. I would suggest twice daily for the first week and then to once daily. Additionally I would have you use sacral fate/Carafate 4 times daily as directed. If this is too cumbersome, I would suggest at least twice daily around lunchtime and then before bed. Tylenol every 4-6 hours if needed for pains. Decrease caffeine use. No anti- inflammatory such as ibuprofen. Follow-up with your primary care in about a week to 10 days for follow-up. To better investigate your symptoms, your primary care may want to refer you to a GI or just general surgery for consideration of an upper endoscopy. I sent your prescription to your preferred pharmacy. Forms: PCP List Discharge Date/Time: 02/15/23 16:00
[2023-02-15] MEDS ORDERED: MAG HYDROX/AL HYDROX/SIMETH 30 ML UDC PO STA (15:03)
[2023-02-15] MEDS ORDERED: FAMOTIDINE 20 MG TABLET PO STA (15:04)
[2023-02-15] MEDS ORDERED: LIDOCAINE VISCOUS 2% 15 ML ORAL SYRINGE MM STA (15:04)
[2023-02-15 15:45] VITALS: BP 121/75; O2SAT 97
--- NOTE | 2023-02-15 16:26 | Ultrasound Report ---
PROCEDURE: Abdomen Limited INDICATIONS: upper abd pain intermittent/with eating TECHNIQUE: Real-time focused scanning was performed of the abdomen, with image documentation. COMPARISONS: Correlation is made with CT, 07/06/2022. FINDINGS: Liver: The liver demonstrates enlarged size. The liver demonstrates mildly increased echogenicity, w hich limits ultrasound sensitivity for detection of masses. Gallbladder: No gallstones or significant sludge can be seen. The gallbladder wall does not appear th ickened. There is no specific pericholecystic fluid. The sonographic Lopez's sign is negative. Biliary ducts: Intrahepatic bile ducts are non-dilated. Extrahepatic bile duct caliber measures 3 m m. Normal is 6-7 mm or less in diameter, or 10 mm or less post-cholecystectomy. Pancreas: Visualized portions of the pancreas are sonographically normal. Right kidney: Normal in size and echotexture. Right kidney measures 11 cm long. No hydronephrosis or nephrolithiasis. No solid masses. No complex renal cystic lesions which require follow-up. Aorta: Visualized aorta is normal in caliber at less than 3 cm. IVC: Intrahepatic inferior vena cava is patent. Miscellaneous: No free abdominal fluid. IMPRESSION: The gallbladder demonstrates a normal sonographic appearance. No biliary dilatation is seen. Enlarged, mildly fatty liver. Note: Concordant preliminary findings given by the delivery table operator upon the completion of the examination to nurse Swain. Reviewed by: Abhishek Romeo MD on 02/15/2023 3:25 PM JANIE Approved by: Abhishek Romeo MD on 02/15/2023 3:25 PM JANIE Station ID: [id number]
[2023-02-15] MEDS ORDERED: SUCRALFATE 1 GM/10 ML UDC PO STA (16:45)
== END 2023-02-15 16:00 | disposition home or self-care (01) ==
LOC: ED 12:50
DX: R10.13 Epigastric pain (principal)
CPT/HCPCS: 36415; 71045; 76705; 80053; 83690; 84484; 85025; 93005; 99284; A9270

== ENCOUNTER 2023-02-17 11:58 | Outpatient (CLI) | payer MEDICAID ==
[2023-02-17 15:48] LABS: H. PYLORIS ANTIGEN STL NEGATIVE (Negative)
== END 2023-02-17 23:59 | disposition home or self-care (01) ==
LOC: LAB.S 11:58
PROVIDERS: ATTEND Physician Assistant
DX: R10.13 Epigastric pain (principal)
CPT/HCPCS: 87338

== ENCOUNTER 2023-03-22 20:46 | Emergency (ER) | payer MEDICAID ==
[2023-03-22] MEDS ORDERED: SODIUM CHLORIDE 0.9% 1,000 ML IV STA (21:25)
[2023-03-22 21:46] LABS: BASOPHILS # (AUTO) 0.1 10^3/uL (0.0-0.1); BASOPHILS % (AUTO) 0.4 %; EOSINOPHILS # (AUTO) 0.2 10^3/uL (0.0-0.7); EOSINOPHILS % (AUTO) 1.4 %; HCT - HEMATOCRIT 40.8 % (37.0-47.0); HGB - HEMOGLOBIN 13.1 g/dL (12.0-16.0); LYMPHOCYTES # (AUTO) 3.9 10^3/uL (1.5-3.5); LYMPHOCYTES % (AUTO) 33.2 %; MEAN CORPUSCULAR HEMOGLOBIN 28.7 pg (27.0-31.0); MEAN CORPUSCULAR HGB CONC 32.1 g/dL (32.0-36.0); MEAN CORPUSCULAR VOLUME 89.5 fL (81.0-99.0); MEAN PLATELET VOLUME 10.2 fL (7.9-10.8); MONOCYTES # (AUTO) 0.6 10^3/uL (0.0-1.0); NEUTROPHILS % (AUTO) 59.7 %; PLT - PLATELET COUNT 285 10^3/uL (130-450); RED BLOOD COUNT 4.56 10^6/uL (4.20-5.40); RED CELL DISTRIBUTION WIDTH 12.2 % (12.0-15.0); WHITE BLOOD COUNT 11.8 x10^3/uL (4.8-10.8)
[2023-03-22 21:52] LABS: BILIRUBIN,URINE NEGATIVE (NEGATIVE); GLUCOSE, URINE (UA) NEGATIVE (NEGATIVE); KETONES,URINE (UA) NEGATIVE (NEGATIVE); LEUKOCYTE ESTERASE, URINE NEGATIVE (NEGATIVE); NITRITE,URINE NEGATIVE (NEGATIVE); OCCULT BLOOD,URINE MODERATE (NEGATIVE); PROTEIN,URINE NEGATIVE (NEGATIVE); UROBILINOGEN,URINE 0.2 (NORMAL) E.U./dL (NORMAL)
[2023-03-22 21:54] LABS: CLARITY,URINE CLEAR (CLEAR); HCG UR QUAL NEGATIVE
[2023-03-22 22:00] LABS: BACTERIA,URINE None Seen /HPF (None Seen); RBC,URINE 0-5 /HPF (0-5); SQUAMOUS EPITHELIAL CELL,UR FEW Squamous (<= Few); WBC,URINE 0-3 /HPF (0-5)
[2023-03-22 22:03] LABS: ALBUMIN 4.3 g/dL (3.2-5.5); ALBUMIN/GLOBULIN RATIO 1.7 (1.0-2.2); BILIRUBIN,TOTAL 0.2 mg/dL (0.2-1.0); CALCIUM 9.7 mg/dL (8.5-10.3); CREATININE 0.7 mg/dL (0.6-1.3); POTASSIUM 3.6 mmol/L (3.5-4.5); TOTAL PROTEIN 6.9 g/dL (6.4-8.9)
--- NOTE | 2023-03-22 22:43 | ED Physician Documentation ---
History of Present Illness - Stated complaint Stated Complaint: R SIDE FACIAL NUMBNESS - Chief complaint Chief Complaint: Neuro - History obtained from History obtained from: Patient - Additonal information Additional information: Patient is a 32-year-old female presenting for evaluation of feeling generalized weakness for the past several weeks. She reports having episodes where she feels lightheaded and feeling off. She reports that she has also noticed some blurriness with her vision intermittently but also knows that she is not using the right prescription eyewear. She has also had episodes where she feels a tingling sensation in her right face.She reports having this tingling sensation today which is what prompted her to come to the emergency department. She has had this tingling sensation previous times and it can last up to an hour. She denies associated headache, weakness, Chest pain or shortness of air. She is currently on her menstrual cycle and denies concerns for . 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 HEENT: None Psych: Obsessive compulsive disorder, Depression, Anxiety Musculoskeletal: None Derm: None - Past Surgical History Past Surgical History: Yes /BARK SCALER: section - Present Medications Home Medications: Ambulatory Orders Medication Instructions Recorded Confirmed Omeprazole Magnesium 20 mg PO DAILY 02/15/23 03/22/23 Sucralfate [Carafate] 1 gm PO ACHS 10 Days #400 ml 02/15/23 03/22/23 - Allergies Allergies/Adverse Reactions: Allergies Allergy/AdvReac Type Severity Reaction Status Date / Time mushroom Allergy Anaphylaxis Verified 03/22/23 21:00 sulfamethoxazole Allergy Hives Verified 03/22/23 21:00 [From Bactrim] trimethoprim [From Bactrim] Allergy Hives Verified 03/22/23 21:00 - Social History Does the pt smoke?: No Smoking Status: Never smoker Does the pt drink ETOH?: No Does the pt have substance abuse?: No - Immunizations Immunizations are current?: No Immunizations: TDAP >10years/unknown, Other immun not current - POLST Patient has POLST: No PD ED PE NORMAL - General General: Alert and oriented X 3, No acute distress, Well developed/nourished - HEENT HEENT: Atraumatic, PERRL, EOMI, Moist mucous membranes, Pharynx benign - Neck Neck: Supple, no meningeal sign - Cardiac Cardiac: RRR, No murmur, Strong equal pulses - Respiratory Respiratory: No respiratory distress, Clear bilaterally - Abdomen Abdomen: Normal bowel sounds, Soft, Non tender, Non distended - Derm Derm: Warm and dry - Extremities Extremities: No edema, No calf tenderness / cord - Neuro Neuro: Alert and oriented X 3, cake former 2-12 intact, No motor deficit, No sensory deficit, Normal speech, Other (Normal [id number] bilaterally, normal gait; NIH 0) Results - Vitals Vitals: Vital Signs - 24 hr 03/22/23 03/22/23 20:53 21:51 Temperature 36.9 C Heart Rate 83 76 Respiratory 18 21 Rate Blood Pressure 127/78 120/72 O2 Saturation 99 97 Oxygen O2 Source Room air - EKG (time done) 2159 EKG releavant findings:: EKG personally interpreted by author of this note. Relevant findings are: Rate 71, normal sinus rhythm, no STEMI, QTc 412 - Labs Labs: Laboratory Tests 03/22/23 03/22/23 03/22/23 21:35 21:41 21:41 WBC 11.8 H RBC 4.56 Hgb 13.1 Hct 40.8 MCV 89.5 MCH 28.7 MCHC 32.1 RDW 12.2 Plt Count 285 MPV 10.2 Neut # (Auto) 7.0 H Lymph # (Auto) 3.9 H [place] # (Auto) 0.6 Eos # (Auto) 0.2 Baso # (Auto) 0.1 Absolute Nucleated RBC 0.00 Nucleated RBC % 0.0 Sodium 137 Potassium 3.6 Chloride 103 Carbon Dioxide 30 Anion Gap 4.0 L BUN 12 Creatinine 0.7 Estimated GFR (MDRD) 98 Glucose 80 Calcium 9.7 Total Bilirubin 0.2 AST 11 ALT 11 Alkaline Phosphatase 65 Total Protein 6.9 Albumin 4.3 Globulin 2.6 Albumin/Globulin Ratio 1.7 Urine Color YELLOW Urine Clarity CLEAR Urine pH 6.0 Ur Specific [place] <=1.005 Urine Protein NEGATIVE Urine Glucose (UA) NEGATIVE Urine Ketones NEGATIVE Urine Occult Blood MODERATE H Urine Nitrite NEGATIVE Urine Bilirubin NEGATIVE Urine Urobilinogen 0.2 (NORMAL) Ur Leukocyte Esterase NEGATIVE Urine RBC 0-5 Urine WBC 0-3 Ur Squamous Epith Cells FEW Squamous Urine Bacteria None Seen Ur Microscopic Review INDICATED Urine Culture Comments NOT INDICATED Urine HCG, Qual NEGATIVE PD Medical Decision Making - ED course Complexity details: reviewed results, re-evaluated patient, d/w patient ED course: Patient is a 32-year-old female presenting for evaluation of feeling generalized weakness and feeling off for the past several weeks. Vital signs are stable. Neuro exam is normal with no symptoms here to suggest a stroke. No risk factors for ACS. EKG is nonischemic. CBC, chemistries, urine analysis were obtained and reviewed and without significant findings.Patient counseled on need for close follow-up with her primary care as she may need further testing or evaluation. She is also counseled on strict return precautions. Departure - Departure Disposition: Home, Self Care Clinical Impression: Lightheadedness, Facial tingling Condition: Stable Instructions: ED Weakness UKO Comments: Your labs today are reassuring. You are not anemic and your electrolytes are normal. Your EKG shows that you are in a normal rhythm. You do need close follow-up with your primary care provider. I would recommend calling on Thursday to arrange for close follow-up given that you have been feeling unwell for the past several weeks. Your vitals have been stable here. Return to the emergency department with any worsening symptoms. Forms: PCP List
[2023-03-23 05:19] VITALS: BP 119/77; O2SAT 100
== END 2023-03-22 23:05 | disposition home or self-care (01) ==
LOC: ED 20:46
DX: R42 Dizziness and giddiness (principal); R20.2 Paresthesia of skin
CPT/HCPCS: 36415; 80053; 81001; 81003; 81025; 85025; 87086; 93005; 99283; 99284

== ENCOUNTER 2023-03-24 12:29 | Outpatient (CLI) | payer MEDICAID ==
[2023-03-24 12:49] LABS: BASOPHILS # (AUTO) 0.1 10^3/uL (0.0-0.1); BASOPHILS % (AUTO) 0.6 %; EOSINOPHILS # (AUTO) 0.1 10^3/uL (0.0-0.7); EOSINOPHILS % (AUTO) 0.9 %; HCT - HEMATOCRIT 41.4 % (37.0-47.0); HGB - HEMOGLOBIN 13.3 g/dL (12.0-16.0); LYMPHOCYTES # (AUTO) 2.6 10^3/uL (1.5-3.5); LYMPHOCYTES % (AUTO) 30.1 %; MEAN CORPUSCULAR HEMOGLOBIN 28.5 pg (27.0-31.0); MEAN CORPUSCULAR HGB CONC 32.1 g/dL (32.0-36.0); MEAN CORPUSCULAR VOLUME 88.8 fL (81.0-99.0); MEAN PLATELET VOLUME 10.1 fL (7.9-10.8); MONOCYTES # (AUTO) 0.3 10^3/uL (0.0-1.0); MONOCYTES % (AUTO) 3.8 %; NEUTROPHILS # (AUTO) 5.6 10^3/uL (1.5-6.6); NEUTROPHILS % (AUTO) 64.4 %; PLT - PLATELET COUNT 271 10^3/uL (130-450); RED BLOOD COUNT 4.66 10^6/uL (4.20-5.40); RED CELL DISTRIBUTION WIDTH 12.1 % (12.0-15.0); WHITE BLOOD COUNT 8.7 x10^3/uL (4.8-10.8)
[2023-03-25 01:07] LABS: HBsAG SCREEN Negative (Negative)
[2023-03-25 04:09] LABS: RPR Non Reactive (Non Reactive)
[2023-03-25 05:13] LABS: HCV AB Non Reactive (Non Reactive); HIV SCREEN 4TH GENERATION Non Reactive (Non Reactive)
[2023-03-25 09:10] LABS: VARICELLA-ZOSTER AB IGG 423 index (Immune >165)
[2023-03-26 15:08] LABS: ANTINUCLEAR ANTIBODIES IFA Negative (.)
== END 2023-03-24 12:30 | disposition home or self-care (01) ==
LOC: LAB 12:29
PROVIDERS: ATTEND Nurse Practitioner
DX: O99.891 Other specified diseases and conditions complicating pregnancy (principal); R20.0 Anesthesia of skin; Z36.89 Encounter for other specified antenatal screening
CPT/HCPCS: 36415; 85025; 86038; 86592; 86762; 86787; 86803; 86850; 86900; 86901; 87340; 87389

== ENCOUNTER 2023-03-28 20:30 | Emergency (ER) | payer MEDICAID ==
--- NOTE | 2023-03-28 21:13 | ED Physician Documentation ---
PD HPI HEADACHE - Stated complaint Stated Complaint: R FACE NUMB/HEADACE/NECK/BLURRY VISION - Chief complaint Chief Complaint: Neuro - History obtained from History obtained from: Patient - Additional information Additional information: HPI from patient. Patient c/o one month of episodic lightheadedness, dizziness, right facial numbness, neck stiffness. She feels episodically disoriented/confused (such as forgetting dates of upcoming appointments/events). She was evaluated for these symptoms in this ED 03/22/23 with unremarkable test results (CBC, ER abdominal panel, UA, UHCG (negative), EKG). She followed up with PCP and CTH and MRI are ordered as part of further workup for these symptoms. Patient says she felt recurrence of the symptoms tonight, contacted PCP and was advised to go to ED for reevaluation. There are no inciting, exacerbating, nor ameliorating factors. Review of Systems Constitutional: denies: Fever, Chills, Sweats Eyes: reports: Decreased vision (episodic blurry vision bilaterally) Cardiac: reports: Reviewed and negative Respiratory: reports: Reviewed and negative GI: reports: Reviewed and negative Neurologic: reports: Numbness, Confused. 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: Other : None HEENT: None Psych: Obsessive compulsive disorder, Depression, Anxiety Musculoskeletal: None Derm: None - Past Surgical History Past Surgical History: Yes /ACCESS SERVICES REPRESENTATIVE: section - Present Medications Home Medications: Ambulatory Orders Medication Instructions Recorded Confirmed No Known Home Medications 03/28/23 03/28/23 - Allergies Allergies/Adverse Reactions: Allergies Allergy/AdvReac Type Severity Reaction Status Date / Time mushroom Allergy Anaphylaxis Verified 03/28/23 21:23 sulfamethoxazole Allergy Hives Verified 03/28/23 21:23 [From Bactrim] trimethoprim [From Bactrim] Allergy Hives Verified 03/28/23 21:23 - Social History Does the pt smoke?: No Smoking Status: Never smoker Does the pt drink ETOH?: No Does the pt have substance abuse?: No - Immunizations Immunizations are current?: No Immunizations: TDAP >10years/unknown, Other immun not current - POLST Patient has POLST: No PD ED PE NORMAL - Vitals Vital signs reviewed: Yes - General General: Alert and oriented X 3, No acute distress, Well developed/nourished - HEENT HEENT: PERRL, EOMI - Neck Neck: Supple, no meningeal sign - Cardiac Cardiac: RRR, No murmur - Respiratory Respiratory: No respiratory distress, Clear bilaterally - Neuro Neuro: Alert and oriented X 3, amusement park entertainer 2-12 intact, No motor deficit, No sensory deficit, Normal speech Eye Opening: Spontaneous Motor: Obeys Commands Verbal: Oriented GCS Score: 15 - Psych Psych: Normal mood, Normal affect Results - Vitals Vitals: Oxygen O2 Source Room air - Labs Labs: Laboratory Tests 03/28/23 21:46 Sodium 137 Potassium 3.5 Chloride 102 Carbon Dioxide 28 Anion Gap 7.0 BUN 8 Creatinine 0.6 Estimated GFR (MDRD) 117 Glucose 90 Calcium 9.9 - Rads (name of study) CTA head Relevant Findings:: Prelim report reviewed, See rad report PD Medical Decision Making - ED course Complexity details: reviewed results, re-evaluated patient, considered differential, d/w patient ED course: Given recent ED testing with unremarkable results, only test performed tonight is CTA head (with BMP to ensure normal renal function). There are no concerning nor diagnostic findings on the CTA head (and BMP is normal, as well). Though unlikely for her age, diagnoses considered include ICH, intracranial mass; these are exceedingly unlikely given CTA head result. Further testing such as MRI might be helpful to exclude other diagnoses such as MS; at this time, further testing can continue in outpatient setting. Results d/w patient, return precautions reviewed. Departure - Departure Disposition: 01 Home, Self Care Clinical Impression: Paresthesia Condition: Good Instructions: ED Paraesthesias Follow-Up: Trudy Graves LEAD ELECTRICAL ENGINEER [Primary Care Provider] - Comments: The CT scan of your head (which was performed with and without contrast) had no remarkable nor diagnostic findings. In short, the CT scan of your head was normal. This is, of course, reassuring; at the same time, the cause of your symptoms remains unclear at this time. As we discussed, further testing might be indicated. You have said that you do have further testing upcoming including MRI. If this does not reveal the cause of your symptoms, your primary care provider might refer you to a specialist such as a neurologist if indicated. Forms: PCP List Discharge Date/Time: 03/29/23 00:23
[2023-03-28 22:07] LABS: CALCIUM 9.9 mg/dL (8.5-10.3); CREATININE 0.6 mg/dL (0.6-1.3); POTASSIUM 3.5 mmol/L (3.5-4.5)
[2023-03-28] MEDS ORDERED: iohexoL-300 100 ML VIAL IVP ONE (22:39)
--- NOTE | 2023-03-28 23:03 | CT Report ---
PROCEDURE: CT Angio Head W/WO INDICATIONS: facial numbness, AMS CONTRAST: 100 ML OMNI 300 TECHNIQUE: After the administration of intravenous contrast, 1 mm thick sections acquired through the [place] of [place]. Postcontrast 4.5 mm thick sections then re-acquired from the foramen magnum to the vertex. 3-dimensional vkazvme-ufawolnyh-plmirwvwva (MIP) and/or volume rendering reformats were acquired of [facility] central intracranial vasculature. For radiation dose reduction, the following was used: automate d exposure control, adjustment of mA and/or kV according to patient size. COMPARISON: None. FINDINGS: Image quality: Diagnostic. Anterior circulation: Intracranial internal carotid arteries are normal in size and flow. The flow within the paired anterior cerebral arteries is normal and symmetric. The flow within the middle cer ebral arteries is normal and symmetric. The anterior communicating artery is seen. No aneurysms are seen. Posterior circulation: Visualized portions of the vertebral arteries demonstrate normal caliber, and join to form a normal appearing basilar artery. Flow within the posterior cerebral arteries is norm al and symmetric. No aneurysms are seen. CSF spaces: Ventricles are normal in size and shape. Basal cisterns are patent. No extra-axial flu id collections. Brain: No midline shift. No intracranial bleeds or masses. Miller-white matter interface appears int act. Skull and face: Calvarium and facial bones appear intact, without suspicious lesions. Sinuses: Visualized sinuses and mastoids are clear. IMPRESSION: No mass, hemorrhage, or ischemic injury is seen. No embolic disease is suspected. Normal for age. Reviewed by: Guanako Anne MD on 03/28/2023 11:02 PM PDT Approved by: Guanako Anne MD on 03/28/2023 11:02 PM PDT Station ID: [id number]
[2023-03-29 00:27] VITALS: BP 135/68; O2SAT 100
== END 2023-03-29 00:23 | disposition home or self-care (01) ==
LOC: ED 20:30
DX: R20.2 Paresthesia of skin (principal)
CPT/HCPCS: 36415; 70496; 80048; 99283; 99284; Q9967

== ENCOUNTER 2023-05-01 13:55 | Outpatient (CLI) | payer MEDICAID ==
[2023-05-01 14:13] LABS: BASOPHILS # (AUTO) 0.1 10^3/uL (0.0-0.1); BASOPHILS % (AUTO) 0.5 %; EOSINOPHILS # (AUTO) 0.1 10^3/uL (0.0-0.7); EOSINOPHILS % (AUTO) 0.9 %; HCT - HEMATOCRIT 42.1 % (37.0-47.0); HGB - HEMOGLOBIN 13.4 g/dL (12.0-16.0); LYMPHOCYTES # (AUTO) 3.3 10^3/uL (1.5-3.5); LYMPHOCYTES % (AUTO) 29.3 %; MEAN CORPUSCULAR HEMOGLOBIN 27.9 pg (27.0-31.0); MEAN CORPUSCULAR HGB CONC 31.8 g/dL (32.0-36.0); MEAN CORPUSCULAR VOLUME 87.7 fL (81.0-99.0); MEAN PLATELET VOLUME 9.6 fL (7.9-10.8); MONOCYTES # (AUTO) 0.4 10^3/uL (0.0-1.0); MONOCYTES % (AUTO) 3.7 %; NEUTROPHILS # (AUTO) 7.3 10^3/uL (1.5-6.6); NEUTROPHILS % (AUTO) 65.4 %; PLT - PLATELET COUNT 333 10^3/uL (130-450); RED CELL DISTRIBUTION WIDTH 12.2 % (12.0-15.0); WHITE BLOOD COUNT 11.2 x10^3/uL (4.8-10.8)
--- NOTE | 2023-05-01 15:14 | Ultrasound Report ---
PROCEDURE: OB First Trimester w/TV INDICATIONS: TEST POSITIVE,ABD PX OUTSIDE/PRIOR DATING DATA: Last menstrual period (LMP): 04/26/2023. LMP-based estimated date of delivery (KATERINA): 01/31/2024. First dating scan (date and location): 05/01/2023 Estimated date of delivery (KATERINA) from first dating scan: No IUP seen. TECHNIQUE: Real-time scanning was performed of the fetus and maternal pelvic organs, with image documentation. Endovaginal scanning was also performed to better visualize the fetus and maternal ovaries. COMPARISON: None. FINDINGS: Unremarkable uterus measuring 6.0 x 2.3 x 2.4 cm. No IUP or ectopic identified. Maternal organs: Ovaries appear within normal limits. IMPRESSION: No intrauterine or ectopic identified. Comment: Only transabdominal ultrasound performed. Patient did not agree to transvaginal ultrasound. Recommend correlation with serial beta hCGs and potentially follow-up ultrasound in 1-2 weeks. Reviewed by: Benedict Fitch MD on 05/01/2023 3:13 PM PST Approved by: Benedict Fitch MD on 05/01/2023 3:13 PM PST Station ID: [id number]
--- NOTE | 2023-05-01 15:19 | Ultrasound Report ---
PROCEDURE: Abdomen Limited INDICATIONS: ABD PX TECHNIQUE: Real-time focused scanning was performed of the abdomen with attention to the appendix, with image do cumentation. COMPARISON: None FINDINGS: Appendix visualization: Not visualized Appendix measurements: Unable to assess Associated findings: Echogenic fat: Absent Appendiceal compressibility: Unable to assess Appendicoliths: Unable to assess Nearby free fluid: Absent Lymphadenopathy: Absent Tenderness on exam: Absent IMPRESSION: Nonvisualization of the appendix. Cannot exclude acute appendicitis. However, there was no pain on ex amination. Reviewed by: Benedict Fitch MD on 05/01/2023 3:17 PM PST Approved by: Benedict Fitch MD on 05/01/2023 3:17 PM PST Station ID: [id number]
== END 2023-05-01 13:56 | disposition home or self-care (01) ==
LOC: LAB 13:55
PROVIDERS: ATTEND Nurse Practitioner
DX: R10.9 Unspecified abdominal pain (principal); Z32.01 Encounter for pregnancy test, result positive
CPT/HCPCS: 36415; 84702; 85025

== ENCOUNTER 2023-05-12 18:47 | Emergency (ER) | payer MEDICAID ==
[2023-05-12 19:33] LABS: BASOPHILS # (AUTO) 0.1 10^3/uL (0.0-0.1); BASOPHILS % (AUTO) 0.6 %; EOSINOPHILS # (AUTO) 0.1 10^3/uL (0.0-0.7); EOSINOPHILS % (AUTO) 0.9 %; HCT - HEMATOCRIT 41.2 % (37.0-47.0); HGB - HEMOGLOBIN 13.2 g/dL (12.0-16.0); LYMPHOCYTES # (AUTO) 3.1 10^3/uL (1.5-3.5); LYMPHOCYTES % (AUTO) 26.7 %; MEAN CORPUSCULAR HEMOGLOBIN 28.4 pg (27.0-31.0); MEAN CORPUSCULAR VOLUME 88.6 fL (81.0-99.0); MEAN PLATELET VOLUME 9.7 fL (7.9-10.8); MONOCYTES # (AUTO) 0.5 10^3/uL (0.0-1.0); MONOCYTES % (AUTO) 4.4 %; NEUTROPHILS # (AUTO) 7.9 10^3/uL (1.5-6.6); NEUTROPHILS % (AUTO) 67.2 %; PLT - PLATELET COUNT 274 10^3/uL (130-450); RED BLOOD COUNT 4.65 10^6/uL (4.20-5.40); RED CELL DISTRIBUTION WIDTH 12.3 % (12.0-15.0); WHITE BLOOD COUNT 11.7 x10^3/uL (4.8-10.8)
[2023-05-12 19:54] LABS: ALBUMIN 4.4 g/dL (3.2-5.5); ALBUMIN/GLOBULIN RATIO 1.9 (1.0-2.2); BILIRUBIN,TOTAL 0.3 mg/dL (0.2-1.0); CALCIUM 9.8 mg/dL (8.5-10.3); CREATININE 0.6 mg/dL (0.6-1.3); POTASSIUM 3.9 mmol/L (3.5-4.5); TOTAL PROTEIN 6.7 g/dL (6.4-8.9)
--- NOTE | 2023-05-12 20:58 | ED Physician Documentation ---
PD HPI ABD PAIN - Stated complaint Stated Complaint: ABD/BACK PX - Chief complaint Chief Complaint: Abd Pain - History obtained from History obtained from: Patient - Additional information Additional information: For 5 days she has had an intermittent pulsating feeling in her mid abdomen. She googled it and was worried about AAA. She does note that she has chronic health anxiety and hypochondria. She states she is chronically hard stools but nothing that is changed since this started. History of , no other abdominal surgeries. No nausea or vomiting. 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 HEENT: None Psych: Obsessive compulsive disorder, Depression, Anxiety Musculoskeletal: None Derm: None - Past Surgical History Past Surgical History: Yes /GROUNDWATER PROGRAMS DIRECTOR: section - Present Medications Home Medications: Ambulatory Orders Medication Instructions Recorded Confirmed Omeprazole Magnesium 20 mg PO DAILY 05/12/23 05/12/23 - Allergies Allergies/Adverse Reactions: Allergies Allergy/AdvReac Type Severity Reaction Status Date / Time mushroom Allergy Anaphylaxis Verified 05/12/23 19:19 sulfamethoxazole Allergy Hives Verified 05/12/23 19:19 [From Bactrim] trimethoprim [From Bactrim] Allergy Hives Verified 05/12/23 19:19 - Social History Does the pt smoke?: No Smoking Status: Never smoker Does the pt drink ETOH?: No Does the pt have substance abuse?: No - Immunizations Immunizations are current?: No Immunizations: TDAP >10years/unknown, Other immun not current - POLST Patient has POLST: No PD ED PE NORMAL - Vitals Vital signs reviewed: Yes - General General: Alert and oriented X 3, No acute distress - Neck Neck: Supple, no meningeal sign, No bony TTP - Cardiac Cardiac: RRR, No murmur - Respiratory Respiratory: No respiratory distress, Clear bilaterally - Abdomen Abdomen: Normal bowel sounds, Soft, Non tender, Other (Bedside ultrasound shows abdominal aorta measuring 1.4 to 1.5 cm throughout its visualized length.) - Neuro Neuro: Alert and oriented X 3, Normal speech - Psych Psych: Normal mood, Normal affect Results - Vitals Vitals: Vital Signs - 24 hr 05/12/23 05/12/23 19:11 21:04 Temperature 36 C L Heart Rate 80 82 Respiratory 15 15 Rate Blood Pressure 121/79 136/77 H O2 Saturation 100 99 Oxygen O2 Source Room air - Labs Labs: Laboratory Tests 05/12/23 05/12/23 05/12/23 19:27 19:27 20:43 WBC 11.7 H RBC 4.65 Hgb 13.2 Hct 41.2 MCV 88.6 MCH 28.4 MCHC 32.0 RDW 12.3 Plt Count 274 MPV 9.7 Neut # (Auto) 7.9 H Lymph # (Auto) 3.1 [place] # (Auto) 0.5 Eos # (Auto) 0.1 Baso # (Auto) 0.1 Absolute Nucleated RBC 0.00 Nucleated RBC % 0.0 Sodium 136 Potassium 3.9 Chloride 102 Carbon Dioxide 29 Anion Gap 5.0 L BUN 5 L Creatinine 0.6 Estimated GFR (MDRD) 117 Glucose 90 Calcium 9.8 Total Bilirubin 0.3 AST 12 ALT 13 Alkaline Phosphatase 62 Total Protein 6.7 Albumin 4.4 Globulin 2.3 Albumin/Globulin Ratio 1.9 Lipase 51 Urine Color YELLOW Urine Clarity CLEAR Urine pH 6.0 Ur Specific [place] <=1.005 Urine Protein NEGATIVE Urine Glucose (UA) NEGATIVE Urine Ketones NEGATIVE Urine Occult Blood NEGATIVE Urine Nitrite NEGATIVE Urine Bilirubin NEGATIVE Urine Urobilinogen 0.2 (NORMAL) Ur Leukocyte Esterase NEGATIVE Ur Microscopic Review NOT INDICATED Urine Culture Comments NOT INDICATED Urine HCG, Qual NEGATIVE PD Medical Decision Making - ED course ED course: 32-year-old woman with specific worry about AAA with underlying health anxiety. Benign exam and reassuring bedside ultrasound. Departure - Departure Disposition: 01 Home, Self Care Clinical Impression: Abdominal pain Condition: Good Record reviewed to determine appropriate education?: Yes Instructions: ED Abdominal Pain Female Non-Specific Abdominal Pain Comments: As discussed there is no evidence of abdominal aortic aneurysm or other significant pathology. Return for new or worsening symptoms. Recommend you follow-up with GI as you have been referred. Forms: PCP List
[2023-05-12 21:01] LABS: BILIRUBIN,URINE NEGATIVE (NEGATIVE); GLUCOSE, URINE (UA) NEGATIVE (NEGATIVE); KETONES,URINE (UA) NEGATIVE (NEGATIVE); LEUKOCYTE ESTERASE, URINE NEGATIVE (NEGATIVE); NITRITE,URINE NEGATIVE (NEGATIVE); OCCULT BLOOD,URINE NEGATIVE (NEGATIVE); PROTEIN,URINE NEGATIVE (NEGATIVE); UROBILINOGEN,URINE 0.2 (NORMAL) E.U./dL (NORMAL)
[2023-05-12 21:05] LABS: CLARITY,URINE CLEAR (CLEAR); HCG UR QUAL NEGATIVE
[2023-05-12 21:13] VITALS: BP 136/77; O2SAT 99
== END 2023-05-12 21:05 | disposition home or self-care (01) ==
LOC: ED 18:47
DX: R10.9 Unspecified abdominal pain (principal)
CPT/HCPCS: 36415; 80053; 81001; 81003; 81025; 83690; 85025; 87086; 99283; 99284

== ENCOUNTER 2023-05-23 20:23 | Emergency (ER) | payer MEDICAID ==
[2023-05-23 20:49] LABS: BILIRUBIN,URINE NEGATIVE (NEGATIVE); CLARITY,URINE CLEAR (CLEAR); GLUCOSE, URINE (UA) NEGATIVE (NEGATIVE); KETONES,URINE (UA) NEGATIVE (NEGATIVE); LEUKOCYTE ESTERASE, URINE NEGATIVE (NEGATIVE); NITRITE,URINE NEGATIVE (NEGATIVE); OCCULT BLOOD,URINE NEGATIVE (NEGATIVE); PH,URINE 6.5 PH (5.0-7.5); PROTEIN,URINE NEGATIVE (NEGATIVE); UROBILINOGEN,URINE 0.2 (NORMAL) E.U./dL (NORMAL)
[2023-05-23 20:50] LABS: BASOPHILS # (AUTO) 0.1 10^3/uL (0.0-0.1); BASOPHILS % (AUTO) 0.4 %; EOSINOPHILS # (AUTO) 0.1 10^3/uL (0.0-0.7); EOSINOPHILS % (AUTO) 0.7 %; HCT - HEMATOCRIT 42.2 % (37.0-47.0); HGB - HEMOGLOBIN 13.4 g/dL (12.0-16.0); LYMPHOCYTES # (AUTO) 3.2 10^3/uL (1.5-3.5); MEAN CORPUSCULAR HEMOGLOBIN 27.6 pg (27.0-31.0); MEAN CORPUSCULAR HGB CONC 31.8 g/dL (32.0-36.0); MEAN CORPUSCULAR VOLUME 86.8 fL (81.0-99.0); MEAN PLATELET VOLUME 9.9 fL (7.9-10.8); MONOCYTES # (AUTO) 0.6 10^3/uL (0.0-1.0); MONOCYTES % (AUTO) 4.7 %; NEUTROPHILS # (AUTO) 9.5 10^3/uL (1.5-6.6); PLT - PLATELET COUNT 269 10^3/uL (130-450); RED BLOOD COUNT 4.86 10^6/uL (4.20-5.40); RED CELL DISTRIBUTION WIDTH 12.5 % (12.0-15.0); WHITE BLOOD COUNT 13.5 x10^3/uL (4.8-10.8)
[2023-05-23 20:50] LABS: HCG UR QUAL NEGATIVE
[2023-05-23 21:04] LABS: ALBUMIN 4.6 g/dL (3.2-5.5); ALBUMIN/GLOBULIN RATIO 1.9 (1.0-2.2); BILIRUBIN,TOTAL 0.3 mg/dL (0.2-1.0); CALCIUM 9.8 mg/dL (8.5-10.3); CREATININE 0.5 mg/dL (0.6-1.3); POTASSIUM 3.6 mmol/L (3.5-4.5)
--- NOTE | 2023-05-23 21:22 | ED Physician Documentation ---
PD HPI ABD PAIN - Stated complaint Stated Complaint: ABD PX - Chief complaint Chief Complaint: Abd Pain - History obtained from History obtained from: Patient - Additional information Additional information: Patient is a 32-year-old female presenting for evaluation of right-sided abdominal pain that has been intermittent for at least a month. She denies any known exacerbating or alleviating factors. She was seen here in our emergency department on May 12 with concerns for a AAA as she thought there was a pulsatile sensation in her abdomen and a bedside ultrasound done at that time was unrevealing for a aneurysm. She is also seen OB recently. She did recently have a chemical at the beginning of April with ultrasounds obtained without any acute findings. She also had an ultrasound of her abdomen that was not able to visualize her appendix but the report also states that she had no pain during the exam. She also had an OB ultrasound which did not show signs of an intrauterine or ectopic and Ovaries appeared within normal limits. She reports she had a few episodes of pain at this evening but currently has is pain-free since she has been in the emergency department. She has an order for an outpatient CT scan with contrast ordered by provider at the women[facility] clinic. Review of Systems Constitutional: denies: Fever Cardiac: denies: Chest pain / pressure Respiratory: denies: Dyspnea GI: reports: Abdominal Pain. 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: No - Immunizations Immunizations are current?: No Immunizations: TDAP >10years/unknown, Other immun not current - POLST Patient has POLST: No PD ED PE NORMAL - General General: Alert and oriented X 3, No acute distress, Well developed/nourished - HEENT HEENT: Atraumatic, Moist mucous membranes, Pharynx benign - Neck Neck: Supple, no meningeal sign - Cardiac Cardiac: RRR, No murmur - Respiratory Respiratory: No respiratory distress, Clear bilaterally - Abdomen Abdomen: Normal bowel sounds, Soft, Non tender, Non distended, Other (Completely pain-free and symptom-free at this time) - Derm Derm: Warm and dry - Extremities Extremities: No edema - Neuro Neuro: Normal speech Results - Vitals Vitals: Vital Signs - 24 hr 05/23/23 05/23/23 05/23/23 20:26 21:17 23:00 Temperature 36.5 C Heart Rate 90 60 74 Respiratory 16 16 Rate Blood Pressure 150/90 H 131/90 H 113/72 O2 Saturation 98 100 98 05/24/23 01:00 Temperature Heart Rate 76 Respiratory 18 Rate Blood Pressure 107/65 O2 Saturation 97 Oxygen O2 Source Room air - Labs Labs: Laboratory Tests 05/23/23 05/23/23 05/23/23 20:35 20:35 20:45 WBC 13.5 H RBC 4.86 Hgb 13.4 Hct 42.2 MCV 86.8 MCH 27.6 MCHC 31.8 L RDW 12.5 Plt Count 269 MPV 9.9 Neut # (Auto) 9.5 H Lymph # (Auto) 3.2 [place] # (Auto) 0.6 Eos # (Auto) 0.1 Baso # (Auto) 0.1 Absolute Nucleated RBC 0.00 Nucleated RBC % 0.0 Sodium Potassium Chloride Carbon Dioxide Anion Gap BUN Creatinine Estimated GFR (MDRD) Glucose Calcium Total Bilirubin AST ALT Alkaline Phosphatase Total Protein Albumin Globulin Albumin/Globulin Ratio Lipase Urine Color STRAW Urine Clarity CLEAR Urine pH 6.5 Ur Specific [place] <=1.005 Urine Protein NEGATIVE Urine Glucose (UA) NEGATIVE Urine Ketones NEGATIVE Urine Occult Blood NEGATIVE Urine Nitrite NEGATIVE Urine Bilirubin NEGATIVE Urine Urobilinogen 0.2 (NORMAL) Ur Leukocyte Esterase NEGATIVE Ur Microscopic Review NOT INDICATED Urine Culture Comments NOT INDICATED Urine HCG, Qual NEGATIVE 05/23/23 20:45 WBC RBC Hgb Hct MCV MCH MCHC RDW Plt Count MPV Neut # (Auto) Lymph # (Auto) [place] # (Auto) Eos # (Auto) Baso # (Auto) Absolute Nucleated RBC Nucleated RBC % Sodium 137 Potassium 3.6 Chloride 105 Carbon Dioxide 28 Anion Gap 4.0 L BUN 9 Creatinine 0.5 L Estimated GFR (MDRD) 144 Glucose 98 Calcium 9.8 Total Bilirubin 0.3 AST 11 ALT 12 Alkaline Phosphatase 61 Total Protein 7.0 Albumin 4.6 Globulin 2.4 Albumin/Globulin Ratio 1.9 Lipase 46 Urine Color Urine Clarity Urine pH Ur Specific [place] Urine Protein Urine Glucose (UA) Urine Ketones Urine Occult Blood Urine Nitrite Urine Bilirubin Urine Urobilinogen Ur Leukocyte Esterase Ur Microscopic Review Urine Culture Comments Urine HCG, Qual PD Medical Decision Making - ED course Complexity details: reviewed results, re-evaluated patient, d/w patient ED course: Patient is a 32-year-old female presenting for evaluation of intermittent abdominal pain that has been ongoing for at least a month. She has had prior evaluation from the women's health clinic. She had a chemical at the beginning of April. She is symptom-free while here and was supposed to have an outpatient CT scan at some point. She has had a pelvis ultrasound in recent weeks. Vitals are stable. Abdominal exam is benign with no pain elicited. CBC, chemistries, urinalysis were obtained and reviewed. Patient is not . No significant lab abnormalities. CT scan of the abdomen and pelvis was obtained and without any acute findings. Patient counseled on need for close follow-up as etiology of her symptoms remains unclear. She is counseled on concerning symptoms to return for. Patient did not require any pain medications while here. Departure - Departure Disposition: 01 Home, Self Care Clinical Impression: Right sided abdominal pain Condition: Stable Instructions: ED Abdominal Pain Female Non-Specific Abdominal Pain Follow-Up: Trudy Graves ARNP [Provider Admit Priv/Credential] - Comments: Your testing today does not show any significant abnormalities including a normal CT scan. I would recommend continued follow-up with the women's health clinic as well as your primary care provider as you may need further testing to determine the source of your pain. COMPARISON: Prior CT abdomen/pelvis 07/06/2022 FINDINGS: Image quality: Excellent. Lung bases and heart: Unremarkable. Liver: No solid mass. Gallbladder and biliary tree: Normal. Spleen: No splenomegaly. Pancreas: No pancreatic ductal dilation. Adrenals: No adrenal nodule. Kidneys and ureters: No hydronephrosis. No renal cystic lesion which requires follow up. No solid mass. Bowel and peritoneum: No bowel distension. No pathologic free fluid. Lymph nodes: No central or retroperitoneal adenopathy. Vessels: No infrarenal aortic aneurysm. PELVIS Reproductive organs: Unremarkable. Bladder: No abnormal wall thickening, accounting for underdistension. Pelvic lymph nodes: No pelvic adenopathy by size criteria. Bones: No aggressive osseous abnormality. Other: No significant ventral or inguinal hernia. A normal appendix was found at the right lower quadrant. IMPRESSION: Source of persistent right-sided abdominal pain is not seen. Normal appendix found right lower quadrant. Forms: PCP List Discharge Date/Time: 05/24/23 01:47
--- NOTE | 2023-05-24 01:20 | CT Report ---
PROCEDURE: ABDOMEN/PELVIS W INDICATIONS: R sided pain x 1 month CONTRAST: Nonionic 100 ML OMNI 300 No oral contrast. TECHNIQUE: After the administration of nonionic contrast, 5 mm thick sections acquired from the diaphragms to th e symphysis. 5 mm thick coronal and sagittal reformats were acquired. For radiation dose reduction, the following was used: automated exposure control, adjustment of mA and/or kV according to patient size. COMPARISON: Prior CT abdomen/pelvis 07/06/2022 FINDINGS: Image quality: Excellent. Lung bases and heart: Unremarkable. Liver: No solid mass. Gallbladder and biliary tree: Normal. Spleen: No splenomegaly. Pancreas: No pancreatic ductal dilation. Adrenals: No adrenal nodule. Kidneys and ureters: No hydronephrosis. No renal cystic lesion which requires follow up. No solid mas s. Bowel and peritoneum: No bowel distension. No pathologic free fluid. Lymph nodes: No central or retroperitoneal adenopathy. Vessels: No infrarenal aortic aneurysm. PELVIS Reproductive organs: Unremarkable. Bladder: No abnormal wall thickening, accounting for underdistension. Pelvic lymph nodes: No pelvic adenopathy by size criteria. Bones: No aggressive osseous abnormality. Other: No significant ventral or inguinal hernia. A normal appendix was found at the right lower quad rant. IMPRESSION: Source of persistent right-sided abdominal pain is not seen. Normal appendix found right lower quadra nt. Reviewed by: Guanako Anne MD on 05/24/2023 1:19 AM PST Approved by: Guanako Anne MD on 05/24/2023 1:19 AM PST Station ID: [id number]
[2023-05-24 01:51] VITALS: BP 107/65; O2SAT 97
[2023-05-24] MEDS ORDERED: iohexoL-300 100 ML VIAL IVP ONE (04:22)
== END 2023-05-24 01:47 | disposition home or self-care (01) ==
LOC: ED 20:23
DX: R10.9 Unspecified abdominal pain (principal)
CPT/HCPCS: 36415; 74177; 80053; 81003; 81025; 83690; 85025; 99283; Q9967; 81001; 87086

== ENCOUNTER 2023-07-20 11:03 | Outpatient (CLI) | payer MEDICAID | END 2023-07-20 11:04 | disposition home or self-care (01) | LOC: LAB.S 11:03 | PROVIDERS: ATTEND Nurse Practitioner | DX: Z32.01 Encounter for pregnancy test, result positive (principal) | CPT/HCPCS: 36415; 84144; 84702 ==

== ENCOUNTER 2023-07-22 11:21 | Outpatient (CLI) | payer MEDICAID | END 2023-07-22 11:22 | disposition home or self-care (01) | LOC: LAB.S 11:21 | PROVIDERS: ATTEND Nurse Practitioner | DX: Z32.01 Encounter for pregnancy test, result positive (principal) | CPT/HCPCS: 36415; 84702 ==

== ENCOUNTER 2023-07-29 20:28 | Emergency (ER) | payer MEDICAID ==
[2023-07-29 20:42] VITALS: O2SAT 100
--- NOTE | 2023-07-29 21:16 | ED Physician Documentation ---
History of Present Illness - Stated complaint Stated Complaint: L ARM PX/NUMB/HEART RACING - Chief complaint Chief Complaint: Cardiac - History obtained from History obtained from: Patient - Additonal information Additional information: 33-year-old woman with past medical history of depression, anxiety, OCD, PVCs, presents with left arm pain/soreness and intermittent numbness last evening as well as a racing heartbeat intermittently yesterday this evening. She had a normal EKG last night when EMS checked on her with mildly elevated blood pressure. Chest pain, shortness of breath, nausea, diaphoresis, leg swelling, cough, fever. Denies urinary symptoms. Patient is 5 weeks with last menstrual period June 25. Denies vaginal bleeding, urinary symptoms, abdominal pain. Denies family history of [place]. Non-smoker. 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: section - Present Medications Home Medications: Ambulatory Orders Medication Instructions Recorded Confirmed Omeprazole Magnesium 20 mg PO DAILY 05/12/23 05/12/23 - Allergies Allergies/Adverse Reactions: Allergies Allergy/AdvReac Type Severity Reaction Status Date / Time mushroom Allergy Anaphylaxis Verified 07/29/23 20:36 sulfamethoxazole Allergy Hives Verified 07/29/23 20:36 [From Bactrim] trimethoprim [From Bactrim] Allergy Hives Verified 07/29/23 20:36 - Social History Does the pt smoke?: No Smoking Status: Never smoker Does the pt drink ETOH?: No Does the pt have substance abuse?: No - Immunizations Immunizations are current?: No Immunizations: TDAP >10years/unknown, Other immun not current - POLST Patient has POLST: No PD ED PE NORMAL - Vitals Vital signs reviewed: Yes - General General: Alert and oriented X 3, No acute distress, Well developed/nourished - HEENT HEENT: Atraumatic, PERRL, EOMI - Neck Neck: Supple, no meningeal sign - Cardiac Cardiac: RRR - Respiratory Respiratory: No respiratory distress, Clear bilaterally - Abdomen Abdomen: Non tender, Non distended - Derm Derm: Normal color, Warm and dry - Extremities Extremities: No deformity - Neuro Neuro: Alert and oriented X 3, No motor deficit, No sensory deficit - Psych Psych: Normal mood, Normal affect Results - Vitals Vitals: Vital Signs - 24 hr 07/29/23 20:36 Temperature 36.8 C Heart Rate 82 Respiratory 16 Rate Blood Pressure 146/82 H O2 Saturation 100 Oxygen O2 Source Room air - EKG (time done) 2145 EKG releavant findings:: EKG personally interpreted by author of this note. Relevant findings are: Rate: Rate (enter#) (91) Rhythm: NSR [place]: Normal Intervals: Normal MI QRS: Normal Ischemia: Normal ST segments - Labs Labs: Laboratory Tests 07/29/23 07/29/23 07/29/23 21:14 21:47 21:47 WBC 12.5 H RBC 4.45 Hgb 12.6 Hct 39.3 MCV 88.3 MCH 28.3 MCHC 32.1 RDW 13.2 Plt Count 262 MPV 9.5 Neut # (Auto) 8.2 H Lymph # (Auto) 3.2 [place] # (Auto) 0.6 Eos # (Auto) 0.4 Baso # (Auto) 0.1 Absolute Nucleated RBC 0.00 Nucleated RBC % 0.0 Sodium 135 Potassium 3.6 Chloride 102 Carbon Dioxide 27 Anion Gap 6.0 BUN 10 Creatinine 0.7 Estimated GFR (MDRD) 97 Glucose 98 Calcium 9.7 Total Bilirubin 0.3 AST 11 ALT 13 Alkaline Phosphatase 55 Troponin I High Sens 2.3 Total Protein 7.0 Albumin 4.2 Globulin 2.8 Albumin/Globulin Ratio 1.5 Lipase 53 Beta HCG, Quant 4351.3 Urine Color LIGHT YELLOW Urine Clarity CLEAR Urine pH 6.5 Ur Specific [place] <=1.005 Urine Protein NEGATIVE Urine Glucose (UA) NEGATIVE Urine Ketones NEGATIVE Urine Occult Blood NEGATIVE Urine Nitrite NEGATIVE Urine Bilirubin NEGATIVE Urine Urobilinogen 0.2 (NORMAL) Ur Leukocyte Esterase NEGATIVE Urine RBC None Seen Urine WBC 0-3 Ur Squamous Epith Cells RARE Squamous Urine Bacteria None Seen Urine Culture Comments NOT INDICATED PD Medical Decision Making - ED course ED course: 33-year-old woman with history of depression, anxiety, PVCs, presents with left arm pain and heart palpitations yesterday evening and tonight. She is concerned she is having a heart attack and requested bloodwork. declined cxr given she is . cbc, abdominal panel, trop, hcg, u/a ordered. results are benign with exception of some nonspecific leukocytosis (WBC 12.5). Doubt infectious etiology at this time. HEART score 0. 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 return precautions given. Departure - Departure Disposition: Home, Self Care Clinical Impression: Arm pain, Numbness and tingling in left arm Condition: Stable Instructions: ED Paraesthesias Comments: You were seen in the emergency department for arm pain and tingling and heart racing. Your workup was normal. Please follow-up with your automobile club membership sales agent and return to the emergency department if you have any new or worsening symptoms or other concerns. Forms: PCP List
[2023-07-29 21:34] LABS: BILIRUBIN,URINE NEGATIVE (NEGATIVE); GLUCOSE, URINE (UA) NEGATIVE (NEGATIVE); KETONES,URINE (UA) NEGATIVE (NEGATIVE); LEUKOCYTE ESTERASE, URINE NEGATIVE (NEGATIVE); NITRITE,URINE NEGATIVE (NEGATIVE); OCCULT BLOOD,URINE NEGATIVE (NEGATIVE); PH,URINE 6.5 PH (5.0-7.5); PROTEIN,URINE NEGATIVE (NEGATIVE); UROBILINOGEN,URINE 0.2 (NORMAL) E.U./dL (NORMAL)
[2023-07-29 21:38] LABS: BACTERIA,URINE None Seen /HPF (None Seen); CLARITY,URINE CLEAR (CLEAR); RBC,URINE None Seen /HPF (0-5); SQUAMOUS EPITHELIAL CELL,UR RARE Squamous (<= Few); WBC,URINE 0-3 /HPF (0-5)
[2023-07-29 21:53] LABS: BASOPHILS # (AUTO) 0.1 10^3/uL (0.0-0.1); BASOPHILS % (AUTO) 0.4 %; EOSINOPHILS # (AUTO) 0.4 10^3/uL (0.0-0.7); EOSINOPHILS % (AUTO) 2.9 %; HCT - HEMATOCRIT 39.3 % (37.0-47.0); HGB - HEMOGLOBIN 12.6 g/dL (12.0-16.0); LYMPHOCYTES # (AUTO) 3.2 10^3/uL (1.5-3.5); LYMPHOCYTES % (AUTO) 25.4 %; MEAN CORPUSCULAR HEMOGLOBIN 28.3 pg (27.0-31.0); MEAN CORPUSCULAR HGB CONC 32.1 g/dL (32.0-36.0); MEAN CORPUSCULAR VOLUME 88.3 fL (81.0-99.0); MEAN PLATELET VOLUME 9.5 fL (7.9-10.8); MONOCYTES # (AUTO) 0.6 10^3/uL (0.0-1.0); MONOCYTES % (AUTO) 5.1 %; NEUTROPHILS # (AUTO) 8.2 10^3/uL (1.5-6.6); NEUTROPHILS % (AUTO) 65.9 %; PLT - PLATELET COUNT 262 10^3/uL (130-450); RED BLOOD COUNT 4.45 10^6/uL (4.20-5.40); RED CELL DISTRIBUTION WIDTH 13.2 % (12.0-15.0); WHITE BLOOD COUNT 12.5 x10^3/uL (4.8-10.8)
[2023-07-29 22:06] LABS: ALBUMIN 4.2 g/dL (3.2-5.5); ALBUMIN/GLOBULIN RATIO 1.5 (1.0-2.2); BILIRUBIN,TOTAL 0.3 mg/dL (0.2-1.0); CALCIUM 9.7 mg/dL (8.5-10.3); CREATININE 0.7 mg/dL (0.6-1.3); POTASSIUM 3.6 mmol/L (3.5-4.5)
[2023-07-29 22:30] LABS: TROPONIN I HIGH SENSITIVITY 2.3 ng/L (2.3-14.8)
[2023-07-29 23:10] VITALS: BP 127/79
== END 2023-07-29 23:03 | disposition home or self-care (01) ==
LOC: ED 20:28
DX: M79.602 Pain in left arm (principal); R20.0 Anesthesia of skin; R20.2 Paresthesia of skin
CPT/HCPCS: 36415; 80053; 81001; 83690; 84484; 84702; 85025; 87086; 93005; 99283; 99284

== ENCOUNTER 2023-08-10 08:00 | Outpatient (CLI) | payer MEDICAID ==
[2023-08-10 16:25] LABS: BILIRUBIN,URINE NEGATIVE (NEGATIVE); GLUCOSE, URINE (UA) NEGATIVE (NEGATIVE); KETONES,URINE (UA) NEGATIVE (NEGATIVE); LEUKOCYTE ESTERASE, URINE NEGATIVE (NEGATIVE); NITRITE,URINE NEGATIVE (NEGATIVE); OCCULT BLOOD,URINE NEGATIVE (NEGATIVE); PH,URINE 6.5 PH (5.0-7.5); PROTEIN,URINE NEGATIVE (NEGATIVE); UROBILINOGEN,URINE 0.2 (NORMAL) E.U./dL (NORMAL)
[2023-08-10 16:33] LABS: CLARITY,URINE CLEAR (CLEAR)
[2023-08-10 16:49] LABS: BACTERIA,URINE None Seen /HPF (None Seen); RBC,URINE 0-5 /HPF (0-5); SQUAMOUS EPITHELIAL CELL,UR FEW Squamous (<= Few); WBC,URINE 0-3 /HPF (0-5)
== END 2023-08-10 23:59 | disposition home or self-care (01) ==
LOC: LAB.WC 08:00
PROVIDERS: ATTEND Nurse Practitioner
DX: Z34.80 Encounter for supervision of other normal pregnancy, unspecified trimester (principal)
CPT/HCPCS: 81001; 87077; 87086

== ENCOUNTER 2023-08-20 08:59 | Outpatient (CLI) | payer MEDICAID ==
[2023-08-20 10:03] LABS: BASOPHILS % (AUTO) 0.3 %; EOSINOPHILS # (AUTO) 0.1 10^3/uL (0.0-0.7); EOSINOPHILS % (AUTO) 0.9 %; HCT - HEMATOCRIT 39.7 % (37.0-47.0); HGB - HEMOGLOBIN 12.7 g/dL (12.0-16.0); LYMPHOCYTES # (AUTO) 2.5 10^3/uL (1.5-3.5); LYMPHOCYTES % (AUTO) 18.8 %; MEAN CORPUSCULAR HEMOGLOBIN 27.8 pg (27.0-31.0); MEAN CORPUSCULAR VOLUME 86.9 fL (81.0-99.0); MEAN PLATELET VOLUME 9.2 fL (7.9-10.8); MONOCYTES # (AUTO) 0.5 10^3/uL (0.0-1.0); MONOCYTES % (AUTO) 4.1 %; NEUTROPHILS % (AUTO) 75.5 %; PLT - PLATELET COUNT 266 10^3/uL (130-450); RED BLOOD COUNT 4.57 10^6/uL (4.20-5.40); RED CELL DISTRIBUTION WIDTH 13.1 % (12.0-15.0); WHITE BLOOD COUNT 13.3 x10^3/uL (4.8-10.8)
--- NOTE | 2023-08-20 12:36 | Ultrasound Report ---
PROCEDURE: OB 1st Trimester INDICATIONS: SUPERVISION OF OUTSIDE/PRIOR DATING DATA: Last menstrual period (LMP): 06/25/2023. LMP-based estimated date of delivery (KATERINA): 03/31/2024. First dating scan (date and location): 08/20/2023. Estimated date of delivery (KATERINA) from first dating scan: 924. TECHNIQUE: Real-time scanning was performed of the fetus and maternal pelvic organs, with image documentation. COMPARISON: None. FINDINGS: Intrauterine gestational sac present. Embryo: [place]-rump length measures 1.65 cm. Estimated gestational age is 8 weeks, 1 day. Heart rate: 171 bpm. Other: No perigestational fluid collection. Measurement variability in dating: +/- 4 weeks by LMP, +/- 7 days by mean sac diameter (use before 6 weeks gestation if crown-rump length not able to be measured), +/- 5 days by crown-rump length (6-12 weeks gestation). Maternal organs: Corpus luteal cyst is noted in left ovary measures 2.3 cm in size. IMPRESSION: 1. Single live intrauterine gestation with fetus seen. Estimated gestational age is 8 weeks, 1 day. F etal heart rate is 171 bpm. 2. Corpus luteal cyst in left ovary as above. Reviewed by: Dale Dueñas MD on 08/20/2023 12:35 PM PST Approved by: Dale Dueñas MD on 08/20/2023 12:35 PM PST Station ID: [id number]
[2023-08-21 05:13] LABS: RPR Non Reactive (Non Reactive)
[2023-08-21 06:08] LABS: HCV AB Non Reactive (Non Reactive); HIV SCREEN 4TH GENERATION Non Reactive (Non Reactive)
[2023-08-21 09:10] LABS: VARICELLA-ZOSTER AB IGG 478 index (Immune >165)
== END 2023-08-20 09:00 | disposition home or self-care (01) ==
LOC: DI 08:59
PROVIDERS: ATTEND Nurse Practitioner
DX: O34.81 Maternal care for other abnormalities of pelvic organs, first trimester (principal); N83.12 Corpus luteum cyst of left ovary; Z3A.08 8 weeks gestation of pregnancy; Z36.89 Encounter for other specified antenatal screening
CPT/HCPCS: 36415; 85025; 86592; 86762; 86787; 86803; 86850; 86900; 86901; 87340; 87389

== ENCOUNTER 2023-09-07 08:00 | Outpatient (CLI) | payer MEDICAID ==
[2023-09-07 23:27] LABS: CHLAMYDIA TRACHOMATIS DNA NEGATIVE (NEGATIVE); NEISSERIA GONORRHOEAE DNA NEGATIVE (NEGATIVE)
[2023-09-08 00:24] LABS: BACTERIAL VAGINOSIS DNA NEGATIVE (NEGATIVE); CANDIDA GLABRATA DNA NEGATIVE (NEGATIVE); CANDIDA GROUP DNA NEGATIVE (NEGATIVE); CANDIDA KRUSEI DNA NEGATIVE (NEGATIVE); TRICHOMONAS VAGINALIS DNA NEGATIVE (NEGATIVE)
== END 2023-09-07 23:59 | disposition home or self-care (01) ==
LOC: LAB.WC 08:00
PROVIDERS: ATTEND Nurse Practitioner
DX: N89.8 Other specified noninflammatory disorders of vagina (principal); Z11.3 Encounter for screening for infections with a predominantly sexual mode of transmission
CPT/HCPCS: 81514; 87491; 87591; 87661

== ENCOUNTER 2023-09-22 08:00 | Outpatient (CLI) | payer MEDICAID ==
[2023-09-23 14:21] LABS: BACTERIAL VAGINOSIS DNA NEGATIVE (NEGATIVE); CANDIDA GLABRATA DNA NEGATIVE (NEGATIVE); CANDIDA GROUP DNA NEGATIVE (NEGATIVE); CANDIDA KRUSEI DNA NEGATIVE (NEGATIVE); TRICHOMONAS VAGINALIS DNA NEGATIVE (NEGATIVE)
[2023-09-23 16:49] LABS: CHLAMYDIA TRACHOMATIS DNA NEGATIVE (NEGATIVE); NEISSERIA GONORRHOEAE DNA NEGATIVE (NEGATIVE)
== END 2023-09-22 23:59 | disposition home or self-care (01) ==
LOC: LAB.WC 08:00
PROVIDERS: ATTEND Nurse Practitioner
DX: N89.8 Other specified noninflammatory disorders of vagina (principal)
CPT/HCPCS: 81514; 87491; 87591; 87661; 87801

== ENCOUNTER 2023-11-19 08:32 | Outpatient (CLI) | payer MEDICAID ==
--- NOTE | 2023-11-19 10:29 | Ultrasound Report ---
PROCEDURE: OB Anatomy Scan INDICATIONS: SUPERVISION OF OUTSIDE/PRIOR DATING DATA: Last menstrual period (LMP): 06/25/2023. LMP-based estimated date of delivery (KATERINA): 03/31/2024. First dating scan (date and location): 08/20/2023. Estimated date of delivery (KATERINA) from first dating scan: 03/30/2024. The below data below was generated using the ultrasound KATERINA of 03/30/2024 TECHNIQUE: Real-time scanning was performed of the fetus, with image documentation and biometric measurements. Endovaginal scanning: Not performed. COMPARISON: 08/20/2023 FINDINGS: General: A single living intrauterine gestation is present. Presentation: Breech Placenta: Placental position is anterior, without previa. Amniotic fluid index: 14.4 cm, within normal limits for gestational age. heart rate: 150 beats per minute. Maternal cervical canal: 3.6 cm long; normal length is 2.5 cm or more. biometrics: Biparietal diameter: 5.0 cm, 21 weeks 0 days, 43% Head circumference: 19.1 cm, 21 weeks 3 days, 57% Abdominal circumference: 16.0 cm, 21 weeks 1 day, 43% Femur length: 3.6 cm, 21 weeks 2 days, 46% Estimated gestational age from initial scan: 21 weeks 1 day Composite gestational age from present scan: 21 weeks 0 days Estimated weight and percentile: 408 g, 49th percentile Measurement variability in biometric dating: +/- 10 days from 12-20 weeks gestation, +/- 2 weeks from 20-30 weeks gestation, +/- 3 weeks at 30 weeks gestation or later. Anatomic survey: Neuro: Ventricles are normal at less than 10 mm. Cisterna magna is normal at 3-11 mm. Cerebellum i s normal in size and morphology. Nuchal skin fold: Normal at less than 6 mm between 14 and 20 weeks gestational age. Face: Nose and lips, facial profile are normal. Spine: No evidence for spina bifida. Heart: 4-chambered heart is present, with normal ventricular outflow tracts. Diaphragm: Diaphragm is intact. Stomach: Left-sided stomach is present. Kidneys: No hydronephrosis. Normal is less than 5 mm in 2nd trimester, less than 7 mm in 3rd trimester. Cord: 3 vessel cord has orthotopic insertion. Bladder: Normal in size. Extremities: All 4 extremities are visualized. IMPRESSION: 1.Single live intrauterine consistent with 21 weeks and 0 days. 2.Normal anatomic survey. Reviewed by: Shay Whalen MD on 11/19/2023 10:27 AM PDT Approved by: Shay Whalen MD on 11/19/2023 10:27 AM PDT Station ID: [id number]
== END 2023-11-19 08:33 | disposition home or self-care (01) ==
LOC: DI 08:32
PROVIDERS: ATTEND Obstetrics & Gynecology
DX: Z34.82 Encounter for supervision of other normal pregnancy, second trimester (principal)

== ENCOUNTER 2023-12-30 12:08 | Outpatient (CLI) | payer MEDICAID ==
[2023-12-30 13:31] LABS: BASOPHILS % (AUTO) 0.3 %; EOSINOPHILS # (AUTO) 0.2 10^3/uL (0.0-0.7); EOSINOPHILS % (AUTO) 1.3 %; HCT - HEMATOCRIT 34.9 % (37.0-47.0); HGB - HEMOGLOBIN 11.1 g/dL (12.0-16.0); LYMPHOCYTES # (AUTO) 2.2 10^3/uL (1.5-3.5); MEAN CORPUSCULAR HEMOGLOBIN 28.5 pg (27.0-31.0); MEAN CORPUSCULAR HGB CONC 31.8 g/dL (32.0-36.0); MEAN CORPUSCULAR VOLUME 89.7 fL (81.0-99.0); MEAN PLATELET VOLUME 10.2 fL (7.9-10.8); MONOCYTES # (AUTO) 0.4 10^3/uL (0.0-1.0); MONOCYTES % (AUTO) 3.2 %; NEUTROPHILS # (AUTO) 10.6 10^3/uL (1.5-6.6); NEUTROPHILS % (AUTO) 78.8 %; PLT - PLATELET COUNT 233 10^3/uL (130-450); RED BLOOD COUNT 3.89 10^6/uL (4.20-5.40); WHITE BLOOD COUNT 13.4 x10^3/uL (4.8-10.8)
[2023-12-30 14:05] LABS: THYROID STIMULATING HORMONE 1.34 uIU/mL (0.34-5.60)
[2023-12-31 13:11] LABS: RPR Non Reactive (Non Reactive)
== END 2023-12-30 12:09 | disposition home or self-care (01) ==
LOC: LAB 12:08
PROVIDERS: ATTEND Nurse Practitioner
DX: O34.211 Maternal care for low transverse scar from previous cesarean delivery (principal); O99.891 Other specified diseases and conditions complicating pregnancy; R53.83 Other fatigue; Z86.2 Personal history of diseases of the blood and blood-forming organs and certain disorders involving the immune mechanism
CPT/HCPCS: 36415; 82728; 82950; 84443; 85025; 86592

== ENCOUNTER 2024-02-03 21:38 | Outpatient (CLI) | payer MEDICAID ==
[2024-02-03 22:31] VITALS: BP 116/66; O2SAT 97
[2024-02-03 23:23] LABS: RUPTURE OF MEMBRANES PLUS NEGATIVE (NEGATIVE)
--- NOTE | 2024-02-03 23:59 | PROVIDER PROGRESS NOTE ---
- HPI Chief Complaint: Leakage of vaginal fluid Current : Vital Signs Temperature 98.4 F 02/03/24 22:05 Heart Rate 95 02/03/24 22:05 Respiratory Rate 20 02/03/24 22:05 Blood Pressure 116/66 02/03/24 22:05 O2 Saturation 97 02/03/24 22:05 Temperature 98.4 F 02/03/24 22:05 Heart Rate 95 02/03/24 22:05 Respiratory Rate 20 02/03/24 22:05 Blood Pressure 116/66 02/03/24 22:05 O2 Saturation 97 02/03/24 22:05 If not protocol: Oxygen Flow, liters/minute - Procedures OB Procedure Performed: NST Service Date of procedure: 02/13/24 (Read 02/03/24) - Plan Plan: Patient is a 33-year-old -0-0-1 at 31 weeks 6 days gestation. She presents today complaining of leaking vaginal fluid. Good movement, no vaginal bleeding, no contractions. She denies headache, right upper quadrant pain, changes in vision. Physical Exam Constitutional: alert, no acute distress, well hydrated, well developed, well nourished, appropriate dress. Cardiovascular: Regular rate and rhythm. Respiratory: no respiratory distress. Abdomen: nondistended, nontender, no guarding. Psych: affect and mood appropriate, normal interaction, good eye contact. FHT: 145 beats per baseline, moderate variability, accelerations present, no decelerations. [place]: Quiescent Assessment and plan Vaginal discharge -Patient examined for leaking fluid and not actively leaking. ROM plus negative. -Discharged in good condition to follow-up with routine care -Vaginosis panel pending. Will follow-up outpatient. Has a visit tomorrow and really will discuss at that time.
[2024-02-04 01:45] LABS: BACTERIAL VAGINOSIS DNA NEGATIVE (NEGATIVE); CANDIDA GLABRATA DNA NEGATIVE (NEGATIVE); CANDIDA GROUP DNA NEGATIVE (NEGATIVE); CANDIDA KRUSEI DNA NEGATIVE (NEGATIVE); TRICHOMONAS VAGINALIS DNA NEGATIVE (NEGATIVE)
== END 2024-02-03 23:55 | disposition home or self-care (01) ==
LOC: WFO 21:38 → FBP 21:40 → WFO 23:55
PROVIDERS: ATTEND Obstetrics & Gynecology
DX: O99.891 Other specified diseases and conditions complicating pregnancy (principal); N89.8 Other specified noninflammatory disorders of vagina; Z3A.31 31 weeks gestation of pregnancy
CPT/HCPCS: 59025; 81514; 84112; 99213; 99215

== ENCOUNTER 2024-02-04 08:00 | Outpatient (CLI) | payer MEDICAID ==
[2024-02-04 17:39] LABS: BILIRUBIN,URINE NEGATIVE (NEGATIVE); GLUCOSE, URINE (UA) NEGATIVE (NEGATIVE); KETONES,URINE (UA) 15 mg/dL (NEGATIVE); LEUKOCYTE ESTERASE, URINE NEGATIVE (NEGATIVE); NITRITE,URINE NEGATIVE (NEGATIVE); OCCULT BLOOD,URINE NEGATIVE (NEGATIVE); PROTEIN,URINE NEGATIVE (NEGATIVE); UROBILINOGEN,URINE 0.2 (NORMAL) E.U./dL (NORMAL)
[2024-02-04 18:08] LABS: BACTERIA,URINE Rare /HPF (None Seen); CLARITY,URINE CLEAR (CLEAR); RBC,URINE None Seen /HPF (0-5); SQUAMOUS EPITHELIAL CELL,UR FEW Squamous (<= Few); WBC,URINE 0-3 /HPF (0-5)
== END 2024-02-04 23:59 | disposition home or self-care (01) ==
LOC: LAB.WC 08:00
PROVIDERS: ATTEND Obstetrics & Gynecology
DX: O34.211 Maternal care for low transverse scar from previous cesarean delivery (principal)
CPT/HCPCS: 81001; 87086

== ENCOUNTER 2024-02-28 10:48 | Outpatient (CLI) | payer MEDICAID ==
[2024-02-28 11:13] LABS: BASOPHILS % (AUTO) 0.3 %; EOSINOPHILS # (AUTO) 0.1 10^3/uL (0.0-0.7); EOSINOPHILS % (AUTO) 0.8 %; HCT - HEMATOCRIT 36.8 % (37.0-47.0); HGB - HEMOGLOBIN 11.5 g/dL (12.0-16.0); LYMPHOCYTES # (AUTO) 1.9 10^3/uL (1.5-3.5); LYMPHOCYTES % (AUTO) 17.4 %; MEAN CORPUSCULAR HEMOGLOBIN 27.4 pg (27.0-31.0); MEAN CORPUSCULAR HGB CONC 31.3 g/dL (32.0-36.0); MEAN CORPUSCULAR VOLUME 87.8 fL (81.0-99.0); MEAN PLATELET VOLUME 10.4 fL (7.9-10.8); MONOCYTES # (AUTO) 0.5 10^3/uL (0.0-1.0); MONOCYTES % (AUTO) 4.2 %; NEUTROPHILS # (AUTO) 8.3 10^3/uL (1.5-6.6); NEUTROPHILS % (AUTO) 76.9 %; PLT - PLATELET COUNT 213 10^3/uL (130-450); RED BLOOD COUNT 4.19 10^6/uL (4.20-5.40); RED CELL DISTRIBUTION WIDTH 14.7 % (12.0-15.0); WHITE BLOOD COUNT 10.9 x10^3/uL (4.8-10.8)
[2024-02-28 11:25] LABS: ALBUMIN 3.3 g/dL (3.2-5.5); ALBUMIN/GLOBULIN RATIO 1.2 (1.0-2.2); BILIRUBIN,TOTAL 0.2 mg/dL (0.2-1.0); CALCIUM 8.8 mg/dL (8.5-10.3); CREATININE 0.5 mg/dL (0.6-1.3); POTASSIUM 3.8 mmol/L (3.5-4.5)
[2024-02-28 11:45] VITALS: O2SAT 98
[2024-02-28 11:47] LABS: CREATININE,URINE 173.4 mg/dL; PROTEIN/CREATININE RATIO,URINE 0.1 (<=0.2)
[2024-02-28 12:05] VITALS: BP 110/77
--- NOTE | 2024-02-28 12:35 | PROVIDER PROGRESS NOTE ---
- HPI Chief Complaint: Hypertension/PIH Current : Vital Signs Temperature 98.2 F 02/28/24 11:27 Heart Rate 85 02/28/24 11:27 Respiratory Rate 18 02/28/24 11:27 Blood Pressure 106/51 L 02/28/24 11:27 O2 Saturation 98 02/28/24 11:27 Temperature 98.2 F 02/28/24 11:27 Heart Rate 87 02/28/24 11:41 Respiratory Rate 18 02/28/24 11:27 Blood Pressure 110/77 02/28/24 11:54 O2 Saturation 98 02/28/24 11:27 If not protocol: Oxygen Flow, liters/minute - Procedures OB Procedure Performed: NST Diagnosis/Indication for NST: Other (Elevated blood pressures) NST Procedure: NST Procedure Start Time 21:55 Stop Time 22:30 Service Date of procedure: 02/28/24 (Read 02/28/24) - Plan Plan: Patient is a 33-year-old -0-1-1 at 35 weeks 3 days gestation presented a after headache that started last night after her baby shower. She took Tylenol and this did improve it. She woke up this morning had mildly elevated blood pressures in the 120s to 130s over 80s to 90s. She did take Tylenol now and headache is gone from a 6 to a 0. No changes in vision or right upper quadrant pain. She has good movement. Denies contractions, leaking, bleeding. Physical Exam Constitutional: alert, no acute distress, well hydrated, well developed, well nourished, appropriate dress Respiratory: no respiratory distress. Abdomen: nondistended, nontender, no guarding. Psych: affect and mood appropriate, normal interaction, good eye contact. FHT: 135 beats minute baseline, moderate variability, accelerations present, no decelerations. [place]: Quiescent Assessment and plan 1 headache -Resolved with Tylenol 2. Elevated blood pressures -No clinically elevated blood pressures here today. 3. History of preeclampsia with severe features -Labs normal today. Blood pressures as well. Gave warning signs for preeclampsia as well as labor precautions. Discharged in good condition.
== END 2024-02-28 12:41 | disposition home or self-care (01) ==
LOC: WFO 10:48 → FBP 10:51 → WFO 12:41
PROVIDERS: ATTEND Obstetrics & Gynecology
DX: O99.891 Other specified diseases and conditions complicating pregnancy (principal); R51.9 Headache, unspecified; Z3A.35 35 weeks gestation of pregnancy; Z87.898 Personal history of other specified conditions
CPT/HCPCS: 36415; 59025; 80053; 82570; 84156; 85025; 99215

== ENCOUNTER 2024-03-04 08:00 | Outpatient (CLI) | payer MEDICAID ==
[2024-03-04 21:02] LABS: BACTERIAL VAGINOSIS DNA NEGATIVE (NEGATIVE); CANDIDA GLABRATA DNA NEGATIVE (NEGATIVE); CANDIDA GROUP DNA NEGATIVE (NEGATIVE); CANDIDA KRUSEI DNA NEGATIVE (NEGATIVE); TRICHOMONAS VAGINALIS DNA NEGATIVE (NEGATIVE)
== END 2024-03-04 23:59 | disposition home or self-care (01) ==
LOC: LAB.WC 08:00
PROVIDERS: ATTEND Nurse Practitioner
DX: L29.9 Pruritus, unspecified (principal)
CPT/HCPCS: 81514